=== PATIENT | male | born 1945 | race Hispanic/Latino ===

== ENCOUNTER 2018-05-25 10:17 | Inpatient (IN) | payer MEDICARE ==
[~2018-05-25] VITALS: Ht 172.7 cm; Wt 121.3 kg
[~2018-05-25 10:17] MED LIST: ADVAIR 250-501 EACH INH; AMLODIPINE-BEN1 EAC3 PO; ASPIRIN CHEW81 MG PO; COZAAR50 MG PO; DIOVAN160 MG PO; DOXYCYCLINE HY100 MG PO; FENOFIBRATE160 MG PO; FUROSEMIDE20 MG PO; HYDRALAZINE HCL25 MG PO; HYDRALAZINE HCL50 MG PO; LASIX40 MG PO; METOPROLOL SUCC50 MG PO; METOPROLOL TART50 MG PO; MONTELUKAST SOD10 MG PO; MUCINEX600 MG PO; NORVASC10 MG PO; Nystatin/Triamcinolone TOP; PENCILLIN V PO250 MG PO; POTASSIUM CHLO10 ME1 PO; POTASSIUM CHLO20 ME1 PO; PROAIR HFA INH8.5 GM; SIMVASTATIN20 MG PO; SYMBICORT 16010.2 GM INH; TESSALON PERLE100 MG PO; VANCOMYCIN1 GM/250 M IV; ZITHROMAX500 MG PO; ceftin PO
--- OUTSIDE RECORDS SUMMARY | 2018-05-25 10:20 | XMS REPORT | Clinical Summary ---
Author Author [facility] Address Unknown Phone Unavailable Care Team Providers Care Pets And Pet Supplies Salesperson Name Role Phone Jaquez PCP Unavailable Allergies No Known Allergies Medications End Date Status Medication Sig Dispensed Refills Start Date Active albuterol Inhale 2 0 (PROVENTIL,VENTOLIN) 90 puffs by mcg/actuation mouth via inhalerIndications: Acute inhaler every Asthma Attack 6 (six) hours as needed. Active aspirin 81 MG EC tablet Take 81 mg by 0 mouth daily. Active simvastatin (ZOCOR) 20 MG Take 20 mg by 0 tablet mouth nightly. Active potassium chloride Take 1 tablet 30 tablet 1 (KLOR-CON) 10 MEQ CR (10 mEq 6 tablet total) by mouth daily. Active metoprolol (LOPRESSOR) 50 Take 50 mg by 0 MG tablet mouth 2 (two) times daily. Active budesonide-formoterol Inhale 2 0 (SYMBICORT) 160-4.5 puffs by mcg/actuation inhaler mouth via inhaler 2 (two) times daily. Active hydrALAZINE (APRESOLINE) Take 50 mg by 0 50 MG tablet mouth 2 (two) times daily. Active valsartan (DIOVAN) 320 MG Take 320 mg 0 tablet by mouth daily. Active bumetanide (BUMEX) 2 MG Take 1 tablet 60 tablet 0 tablet (2 mg total) 7 by mouth daily. Active Problems Problem Noted Date COPD exacerbation 04/07/2017 Acute on chronic diastolic congestive heart failure, NYHA class 3 05/12/2015 Neck pain, acute 05/12/2015 Atypical chest pain 05/12/2015 Dyspnea 05/12/2015 Accelerated hypertension with diastolic congestive heart failure, NYHA 05/12/2015 class 3 Moderate persistent asthma in adult without complication 05/12/2015 CAD (coronary artery disease) of artery bypass graft, ACBx4 2003 (ALVAREZ to 01/22/2013 LAD, SVG to D, SVG to OM, SVG to RCA), stress test nuclear normal 05/26. EF normal in stress test with normal wall motion. Arthritis 01/21/2013 Hyperlipidemia 01/21/2013 DELMER on CPAP 01/21/2013 Family History Medical History Relation Name Comments Heart disease Mother Hyperlipidemia Sister Relation Name Status Comments Mother Sister Social History Date Tobacco Use Types Packs/Day Years Used Never Smoker Smokeless Tobacco: Never Used Alcohol Use Drinks/Week oz/Week Comments No Sex Assigned at Date Recorded Not on file Industry Job Start Date Occupation Not on file Not on file Not on file Travel End Travel History Travel Start No recent travel history available. Last Filed Vital Signs Not on file Plan of Treatment Not on file Results Not on fileafter 05/24/2017 Insurance Payer Benefit Subscriber ID Type Phone Address [facility] MEDIC[facility] ADV Guarantor Name Account Relation to Date of Phone Billing Address Type Patient Donny Self Personal/F Self 1945 [phone] [facility] (Home) [place] [address] Advance Directives For more information, please contact: [address] [address] Date Inactivated Comments Code Status Date Activated 04/09/2017 1:48 PM Full Code 04/07/2017 7:59 PM This code status was determined by: Patient 05/18/2013 6:31 PM All possible means of support, including: cardiac massage, mechanical ventilation, and defibrillation will be used to support life. Code ONE 05/11/2013 10:05 AM 01/22/2013 4:59 PM All possible means of support, including: cardiac massage, mechanical ventilation, and defibrillation will be used to support life. Code ONE 01/21/2013 5:32 PM 01/21/2013 5:32 PM All possible means of support, including: cardiac massage, mechanical ventilation, and defibrillation will be used to support life. Code ONE 01/21/2013 1:35 PM
--- OUTSIDE RECORDS SUMMARY | 2018-05-25 10:20 | XMS REPORT ---
Author Author [facility] Address Unknown Phone Unavailable Care Team Providers Care Musical String Maker Name Role Phone CARINA SHIN Unavailable Unavailable SWEETTito LAIDAVID Unavailable Unavailable Problems This patient has no known problems. Allergies, Adverse Reactions, Alerts This patient has no known allergies or adverse reactions. Medications This patient has no known medications. Results Test Description Test Time Test Comments Text Results Atomic Results Result Comments BLOOD CULTURE 2017-04-12 23:00:00 CULTURE (BEAKER) (test qiuz=9057) No growth in 5 days BLOOD [id number] 23:00:00* Test Item Value Reference Range Comments CULTURE (BEAKER) (test splx=1495) No growth in 5 days BASIC METABOLIC [id number] 05:53:00* Test Item Value Reference Range Comments SODIUM (BEAKER) (test oggk=395) 144 meq/L 136-145 POTASSIUM (BEAKER) (test bakk=894) 4.2 meq/L 3.5-5.1 CHLORIDE (BEAKER) (test blta=318) 100 meq/L 98-107 CO2 (BEAKER) (test ipnw=834) 38 meq/L 22-29 BLOOD UREA NITROGEN (BEAKER) (test pzse=963) 39 mg/dL 7-21 CREATININE (BEAKER) (test jxvp=063) 1.01 mg/dL 0.57-1.25 GLUCOSE RANDOM (BEAKER) (test uxwb=409) 99 mg/dL 70-105 CALCIUM (BEAKER) (test kcuu=435) 9.5 mg/dL 8.4-10.2 EGFR (BEAKER) (test vpkt=7488) 73 mL/min/1.73 sq m ESTIMATED GFR IS NOT ACCURATE CREATININE CLEARANCE IN PREDICTING GLOMERULAR FILTRATION RATE. ESTIMATED GFR IS NOT APPLICABLE FOR DIALYSIS PATIENTS. CREATINE KINASE (CK), TOTAL AND [id number] 14:47:00* Test Item Value Reference Range Comments CREATINE KINASE TOTAL (BEAKER) (test sigg=900) 55 U/L 29-200 CREATINE KINASE-MB (BEAKER) (test fshg=344) 2.9 ng/mL 0.0-6.6 CREATINE KINASE-MB INDEX (BEAKER) (test dwig=423) 5.3 % CK-MB Reference Range:<6.7 Normal6.7-10.0 Borderline>10.0 Abnormal TROPONIN [id number] 14:47:00* Test Item Value Reference Range Comments TROPONIN I (BEAKER) (test zqbl=807) 0.06 ng/mL 0.00-0.03 Troponin I (TnI) levels must be interpreted in the context of the presenting sym ptoms and the clinical findings. Elevated TnI levels indicate myocardial damage, but are not specific for ischemic heart disease. Elevated TnI levels are seen in patients with other cardiac conditions (including myocarditis and congestive h eart failure), and slight TnI elevations occur in patients with other conditions , including sepsis, renal failure, acidosis, acute neurological disease, and per sistent tachyarrhythmia.BASIC METABOLIC [id number] 05:52:00* Test Item Value Reference Range Comments SODIUM (BEAKER) (test qvio=451) 143 meq/L 136-145 POTASSIUM (BEAKER) (test anbb=820) 4.6 meq/L 3.5-5.1 CHLORIDE (BEAKER) (test vjsx=161) 100 meq/L 98-107 CO2 (BEAKER) (test sagq=524) 34 meq/L 22-29 BLOOD UREA NITROGEN (BEAKER) (test pvbo=636) 34 mg/dL 7-21 CREATININE (BEAKER) (test slyn=029) 1.00 mg/dL 0.57-1.25 GLUCOSE RANDOM (BEAKER) (test gfpg=817) 114 mg/dL 70-105 CALCIUM (BEAKER) (test qztd=168) 9.5 mg/dL 8.4-10.2 EGFR (BEAKER) (test kzvw=8952) 74 mL/min/1.73 sq m ESTIMATED GFR IS NOT ACCURATE CREATININE CLEARANCE IN PREDICTING GLOMERULAR FILTRATION RATE. ESTIMATED GFR IS NOT APPLICABLE FOR DIALYSIS PATIENTS. TROPONIN [id number] 22:17:00* Test Item Value Reference Range Comments TROPONIN I (BEAKER) (test bmnc=602) 0.09 ng/mL 0.00-0.03 Troponin I (TnI) levels must be interpreted in the context of the presenting sym ptoms and the clinical findings. Elevated TnI levels indicate myocardial damage, but are not specific for ischemic heart disease. Elevated TnI levels are seen in patients with other cardiac conditions (including myocarditis and congestive h eart failure), and slight TnI elevations occur in patients with other conditions , including sepsis, renal failure, acidosis, acute neurological disease, and per sistent tachyarrhythmia.RAD, CHEST, 2 [id number] 16:06:00Reason for exam:-> SHORTNESS OF BREATHReason for exam:->COUGHFINAL REPORT HISTORY : SHORTNESS OF BREATHCOUGH. Comparison: 05/11/2015 Comment: Two views of the chest, PA and lateral, were obtained. The cardiac silhouette size is enlarged. There are findings of pulmonary venous congestion. Interstitial prominence may represent interstitial edema. An interstitial pneumonitis cannot be excluded. No pneumothorax or pleural effusion is seen. There is atherosclerotic calcification of the thoracic aorta. The patient is status post sternotomy. Multilevel degenerative disc changes of the thoracic spine are seen. Signed: Lori Patterson Verified Date/Time: 04/07/2017 16:06:10 Reading Location: [address] Transitional Reading Room D INFLUENZA A&B [id number] 16:04:00* Test Item Value Reference Range Comments RAPID INFLUENZA A AG (BEAKER) (test dvnh=9926) Negative Negative, Inconclusive RAPID INFLUENZA B AG (BEAKER) (test yuin=8375) Negative Negative, Inconclusive RAPID TROPONIN [id number] 16:03:00* Test Item Value Reference Range Comments RAPID TROPONIN I (BEAKER) (test qsda=3565) < ng/mL <0.05 HEPATIC FUNCTION [id number] 15:56:00* Test Item Value Reference Range Comments TOTAL PROTEIN (BEAKER) (test ctuv=475) 7.3 gm/dL 6.0-8.5 ALBUMIN (BEAKER) (test ecql=9906) 3.4 g/dL 3.5-5.0 BILIRUBIN TOTAL (BEAKER) (test ufnz=120) 0.7 mg/dL 0.1-1.2 BILIRUBIN DIRECT (BEAKER) (test veag=074) 0.4 mg/dL 0.0-0.4 ALKALINE PHOSPHATASE (BEAKER) (test llzr=014) 56 U/L 30-115 AST (SGOT) (BEAKER) (test giyd=987) 24 U/L 5-40 ALT (SGPT) (BEAKER) (test yxml=707) 33 U/L 5-50 B-TYPE NATRIURETIC FACTOR (BNP)2017-04-07 15:56:00* Test Item Value Reference Range Comments B-TYPE NATRIURETIC PEPTIDE (BEAKER) (test nixb=127) 215 pg/mL 0-100 BASIC METABOLIC [id number] 15:53:00* Test Item Value Reference Range Comments SODIUM (BEAKER) (test juyt=425) 145 meq/L 135-148 POTASSIUM (BEAKER) (test dbmi=711) 4.9 meq/L 3.6-5.5 CHLORIDE (BEAKER) (test mqxy=334) 100 meq/L 98-106 CO2 (BEAKER) (test tavu=072) 35 meq/L 24-32 BLOOD UREA NITROGEN (BEAKER) (test pbyv=074) 35 mg/dL 10-26 CREATININE (BEAKER) (test vold=317) 1.08 mg/dL 0.50-1.20 GLUCOSE RANDOM (BEAKER) (test dujc=821) 118 mg/dL 70-110 CALCIUM (BEAKER) (test lhly=990) 9.0 mg/dL 8.5-10.5 EGFR (BEAKER) (test sxwp=6410) 67 mL/min/1.73 sq m ESTIMATED GFR IS NOT ACCURATE CREATININE CLEARANCE IN PREDICTING GLOMERULAR FILTRATION RATE. ESTIMATED GFR IS NOT APPLICABLE FOR DIALYSIS PATIENTS. CBC W/PLT COUNT & AUTO [id number] 15:45:00* Test Item Value Reference Range Comments WHITE BLOOD CELL COUNT (BEAKER) (test tyvd=881) 7.2 10e3/ L 4.0-10.0 RED BLOOD CELL COUNT (BEAKER) (test mfwt=241) 4.77 10e6/ L 4.20-5.80 HEMOGLOBIN (BEAKER) (test jkbv=135) 13.5 g/dL 13.0-16.8 HEMATOCRIT (BEAKER) (test ayce=976) 41.1 % 40.0-50.0 MEAN CORPUSCULAR VOLUME (BEAKER) (test ohfc=118) 86.1 fL 82.0-98.0 MEAN CORPUSCULAR HEMOGLOBIN (BEAKER) (test unwz=022) 28.2 pg 27.0-33.0 MEAN CORPUSCULAR HEMOGLOBIN CONC (BEAKER) (test bolz=607) 32.8 g/dL 32.0-36.0 RED CELL DISTRIBUTION WIDTH (BEAKER) (test vywp=081) 13.8 % 10.3-14.2 PLATELET COUNT (BEAKER) (test bvyi=166) 203 10e3/ L 150-430 MEAN PLATELET VOLUME (BEAKER) (test frmk=983) 8.1 fL 6.5-10.5 NEUTROPHILS RELATIVE PERCENT (BEAKER) (test bnlj=135) 74 % LYMPHOCYTES RELATIVE PERCENT (BEAKER) (test qbgo=675) 14 % MONOCYTES RELATIVE PERCENT (BEAKER) (test nhop=371) 9 % EOSINOPHILS RELATIVE PERCENT (BEAKER) (test usdq=476) 2 % BASOPHILS RELATIVE PERCENT (BEAKER) (test wssi=278) 1 % NEUTROPHILS ABSOLUTE COUNT (BEAKER) (test wzzv=508) 5.30 10e3/ L 1.80-8.00 LYMPHOCYTES ABSOLUTE COUNT (BEAKER) (test lnfc=086) 1.03 10e3/ L 1.48-4.50 MONOCYTES ABSOLUTE COUNT (BEAKER) (test vovq=944) 0.65 10e3/ L 0.00-1.30 EOSINOPHILS ABSOLUTE COUNT (BEAKER) (test abip=230) 0.16 10e3/ L 0.00-0.50 BASOPHILS ABSOLUTE COUNT (BEAKER) (test uoxy=945) 0.04 10e3/ L 0.00-0.20 CHEST 2 VIEWS [place] [address] Patient Name: DONNY SELF MR #: [id number] : 1945 Age/Sex: 71/M Req #: [id number] Adm Physician: Ordered by: SADE ADHIKARI MD Report #: [id number] Location: ER Room/Bed: Procedure: [id number] DX/CHEST 2 VIEWS Exam Date: 0 01/10/17 Exam Time: 2200 REPORT STATUS: Signed EXAMINATION: CHEST 2 VIEWS INDICATION: Cough, fever COMPARISON: 06/21/2016, 06/19/2016 and 06/17/2016 FINDINGS: TUBES and LI JOHN: None. LUNGS: Lungs are not well inflated. There are bibasilar atele ctasis. There is mild prominence of the central pulmonary vasculature, consi stent with pulmonary venous congestion. Confluent opacity in the left upper lo be and suprahilar region suspicious for developing infection/pneumonia PL EURA: No pleural effusion or pneumothorax. HEART AND MEDIASTINUM: Cardiac size is moderately enlarged. There are atherosclerotic calcifications within the aorta. Midline sternotomy wires are intact BONES AND SOFT TISSUES: N o acute osseous lesion. Soft tissues are unremarkable. UPPER ABDOMEN: No free air under the diaphragm. IMPRESSION: 1. Findings are suspicio us for left upper lobe/suprahilar airspace disease/pneumonia. 2. Moderate e nlargement of the heart without evidence of decompensation. Signed by: Marielle Conley M.D. on 01/10/2017 10:30 PM Dictated By: STEFF GILL MD [address] scribed By: CHARLY on 01/10/172229 COPY TO: SADE ADHIKARI MD
[2018-05-25 10:56] LABS: BASOPHILS % 0.3 % (0.0-1.0); EOSINOPHILS # (AUTO) 0.5 (0.0-0.4); EOSINOPHILS % 5.4 % (0.0-6.0); HEMATOCRIT 46.3 % (38.2-49.6); HEMOGLOBIN 14.5 g/dL (14.0-18.0); LYMPHOCYTES # (AUTO) 1.8 (1.0-3.2); MEAN CORPUSCULAR HEMOGLOBIN 28.3 pg (28-32); MEAN CORPUSCULAR HGB CONC 31.3 g/dL (31-35); MEAN CORPUSCULAR VOLUME 90.3 fL (81-99); MONOCYTES # (AUTO) 0.8 (0.2-0.8); MONOCYTES % 8.3 % (4.4-11.3); NEUTROPHILS # (AUTO) 6.2 (2.1-6.9); NEUTROPHILS % 66.8 % (38.7-80.0); PLATELET COUNT 203 x10e3/uL (140-360); RED BLOOD COUNT 5.13 x10e6/uL (4.3-5.7); RED CELL DISTRIBUTION WIDTH 14.4 % (11.7-14.4)
[2018-05-25 11:06] LABS: PARTIAL THROMBOPLASTIN TIME 28.6 seconds (23.8-35.5)
[2018-05-25 11:14] LABS: BILIRUBIN,URINE NEGATIVE (NEGATIVE); CLARITY,URINE SL CLOUDY (CLEAR); COLOR,URINE YELLOW (YELLOW); KETONES,URINE NEGATIVE (NEGATIVE); LEUKOCYTE ESTERASE ,URINE TRACE (NEGATIVE); NITRITE,URINE NEGATIVE (NEGATIVE); PROTEIN,URINE DIPSTICK NEGATIVE (NEGATIVE); URINE UROBILINOGEN 0.2 mg/dL (0.2 - 1)
[2018-05-25 11:15] LABS: ALBUMIN 3.9 g/dL (3.5-5.0); ANION GAP 13.9 mmol/L (8-16); CALCIUM 9.9 mg/dL (8.4-10.2); CREATININE, SERUM 1.41 mg/dL (0.72-1.25); POTASSIUM 4.9 mmol/L (3.5-5.1)
--- NOTE | 2018-05-25 11:18 | Diagnostic Imaging Report ---
EXAMINATION: CHEST SINGLE (PORTABLE) INDICATION: Chest pain COMPARISON: Image from comparison radiograph on 01/10/2017 are not available at the time of this dictation. FINDINGS: Somewhat limited from portal technique and soft tissue attenuation. TUBES and LINES: None. LUNGS: There is mild central vascular congestion and mild interstitial opacity. Mild patchy opacity at the right lung base, likely atelectasis. No evidence of lobar consolidation. PLEURA: No pleural effusion or pneumothorax. HEART AND MEDIASTINUM: Enlargement of the cardiomediastinal silhouette. Atherosclerotic calcifications of the aorta. BONES AND SOFT TISSUES: No acute osseous abnormality. Status post median sternotomy. UPPER ABDOMEN: No free air under the diaphragm. IMPRESSION: Cardiomegaly with mild pulmonary interstitial edema. Signed by: Dr. Julio Cesar Anderson MD on 05/25/2018 11:14 AM
[2018-05-25 11:22] LABS: CREATINE KINASE MB 3.8 ng/mL (0-5.0)
[2018-05-25 11:25] LABS: INR 0.95; PROTHROMBIN TIME 13.6 seconds (11.9-14.5)
[2018-05-25 11:29] LABS: BACTERIA,URINE RARE /HPF; EPITHELIAL CELLS,URINE RARE /LPF
[2018-05-25] MEDS ORDERED: NITROGLYCERIN 0.4 MG SUBL SL PRN (12:15)
[2018-05-25] MEDS ORDERED: MORPHINE SULFATE INJ 4 MG/ML INJ 1ML IV PRN (12:15)
[2018-05-25] MEDS ORDERED: SODIUM CHLORIDE FLUSH 10 ML SYR INJ PRN (12:15)
[2018-05-25] MEDS ORDERED: ONDANSETRON HCL INJ 2MG/ML 2ML 2 MG/ML VIAL IV PRN (12:15)
--- OUTSIDE RECORDS SUMMARY | 2018-05-25 12:16 | XMS REPORT | Clinical Summary ---
Author Author [facility] Address Unknown Phone Unavailable Care Team Providers Care Applications Support Lead Name Role Phone Jaquez PCP Unavailable Allergies [...] ID Type Phone Address Plan / [facility] x[facility]xx MEDICARE ADV Guarantor Name Account Relation to Date of Phone Billing Address Type Patient Donny Self Personal/F Self 1945 [phone] [facility] (Home) [place] [address] Advance Directives For more information, please contact: [address] [address] Date Inactivated Comments Code Status [...]
[2018-05-25] MEDS: FAMOTIDINE 20 MG TAB PO SCH (13:00)
--- NOTE | 2018-05-25 14:20 | NUR ---
Recvd patient from ER via stretcher, AAOx3, Not in SOB, On Tele box, denies any pain, not in any distress, call light in reach, at bed side. keep monitoring
[2018-05-25 14:28] VITALS: BP 185/78
--- NOTE | 2018-05-25 15:17 | Consultation ---
DATE OF CONSULTATION: May 25, 2018 CARDIOLOGY CONSULTATION REQUESTING PHYSICIAN: Dr. Ferrera. REASON FOR CONSULTATION: Chest pain. HISTORY OF PRESENT ILLNESS: This is a 73-year-old man with history of coronary artery disease status post 4-vessel CABG in 2002 and stent in 2001, chronic diastolic heart failure, hypertension, hyperlipidemia, COPD and sleep apnea, who presents with complaints of chest pain. The patient reports he has been having chest pain for approximately the last month. Describes it as a squeezing sensation, 1/10 in severity, that lasts a few minutes at a time. The pain occurs every day and does occasionally radiate to the jaw and arm. It is not associated with shortness of breath, nausea, or diaphoresis. He denies any orthopnea or PND. REVIEW OF SYSTEMS: Negative except as per HPI. PAST MEDICAL HISTORY 1. Coronary artery disease status post 4-vessel CABG in 2002 and stent in 2001. 2. Chronic diastolic heart failure. 3. Hypertension. 4. Hyperlipidemia. 5. COPD. 6. Sleep apnea. PAST SURGICAL HISTORY 1. CABG. 2. Back surgery in 1973. ALLERGIES: PLEASE SEE EMR. MEDICATIONS: Please see medication list. SOCIAL HISTORY: Denies tobacco, alcohol or illicit drugs. FAMILY HISTORY: Pertinent for myocardial infarction in the mother and brother. PHYSICAL EXAMINATION VITAL SIGNS: Temperature 98.8 degrees, pulse 60, respiratory rate 18, blood pressure 121/73, oxygen saturation 100% on 3 liters nasal cannula. GENERAL: Awake, alert, in no acute distress. HEENT: Normocephalic, atraumatic. Pupils equal, no scleral icterus. NECK: Supple. No thyromegaly or cervical lymphadenopathy, no carotid bruits. LUNGS: Clear to auscultation bilaterally. No wheezes or crackles. CARDIOVASCULAR: Normal rate, regular rhythm. No murmur. Normal S1 and S2. ABDOMEN: Soft, nontender. EXTREMITIES: 1+ pitting edema on the right, trace on the left. NEURO: Nonfocal exam. LABS: WBC 9.25, hemoglobin 14.5, hematocrit 46.3, platelets 203. Sodium 142, potassium 4.9, chloride 102, CO2 31, BUN 34, creatinine 1.41. BNP 207. CHEST X-RAY: Cardiomegaly with mild pulmonary interstitial edema. EKG: Sinus bradycardia with PACs, left ventricular hypertrophy with repolarization abnormality. IMPRESSIONS 1. Chest pain. 2. Pynvc-ri-gkpkpus diastolic heart failure. 3. Coronary artery disease status post 4-vessel coronary artery bypass graft. 4. Hypertension. 5. Hyperlipidemia. 6. Chronic obstructive pulmonary disease. 7. Obstructive sleep apnea. RECOMMENDATIONS: Trend cardiac enzymes to rule out myocardial infarction. Echocardiogram has been ordered. Given patient's complaint of chest pain and prior cardiac history, ischemic evaluation is warranted with nuclear stress test. If he rules in for myocardial infarction, he will need cardiac catheterization. Continue home cardiac medications. check fasting lipid panel. Thank you for this consult. We will continue to follow. Job#: [id number] JORGE
[2018-05-25 15:32] VITALS: BP 146/80
[2018-05-25 16:27] VITALS: BP 146/80
[2018-05-25] MEDS: NITROGLYCERIN 2% OINT 1 GM PKT TOP SCH (18:00)
[2018-05-25 20:00] VITALS: BP 166/80
[2018-05-25] MEDS ORDERED: FUROSEMIDE INJ 10 MG/ML 4 ML VIAL IV SCH (21:00)
[2018-05-25 21:38] LABS: CREATINE KINASE MB 3.1 ng/mL (0-5.0)
--- NOTE | 2018-05-25 23:00 | NUR ---
RECEIVED REPORT. NO SS OF DISTRESS NOTED. NO CO PAIN AT TIME. TELE IN PLACE. WILL CONT TO FOLLOW POC. CALL BETANCOURT WITHIN REACH.
[2018-05-25] MEDS ORDERED: DOXYCYCLINE 100MG/NS 100ML 100 ML IV SCH (23:30)
[2018-05-25] MEDS ORDERED: CEFTRIAXONE SOD 1 GM/NS 50 ML 50 ML IV SCH (23:30)
[2018-05-26] VITALS: BP 144/67
--- NOTE | 2018-05-26 | NUR ---
pt npo per orders. pt verbalized understanding. call negron within reach.
--- NOTE | 2018-05-26 00:15 | NUR ---
PT CO WHEEZING. 02 97% ON [address] ELDER, NEW ORDERS RECEIVED. SPOKE TO RESPIRATORY REGARDING NEBS [place] ORDER.
--- NOTE | 2018-05-26 00:21 | History and Physical ---
DATE OF ENCOUNTER: May 25, 2018 PRIMARY CARE DOCTOR: Dr. Cuba [facility] COVERAGE: Dr. Haseeb Cornelius CHIEF COMPLAINT: Chest pain. HISTORY: Mr. Self is a pleasant 73-year-old gentleman with chest pain. Patient was having intermittent chest pains. Onset about 1 month. Squeezing sensation. Lasts a few minutes at a time. Patient does not have any significant shortness of breath associated with it. When he did come to the emergency room, it was seen that his creatinine was 1.4, which is minimally above his baseline. BNP level is 208. Albumin is 3.9. At this point, EKG also had nonspecific many T-wave changes. It was elected to admit him for further evaluation. Patient does have history of coronary artery disease known. PAST MEDICAL HISTORY: Coronary artery disease status post CABG in 2002 and stent in 2001. Chronic diastolic heart failure. Hypertension. Hyperlipidemia. Sleep apnea. Back surgery in 1973. MEDICATIONS: Medication list reviewed per electronic record. ALLERGIES: NO KNOWN DRUG ALLERGIES. SOCIAL HISTORY: No smoking, no drinking, no drugs cited. 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 FAMILY HISTORY: Not contributory to this condition. REVIEW OF SYSTEMS: GENERAL: No weight changes. OPHTHALMOLOGIC: No double vision. ENT: No dry mouth. PULMONARY: Does not know about asthma. IMMUNOLOGIC: No definite allergies. CARDIAC: No recent heart attacks. GI: No constipation. : No blood in urine. DERMATOLOGIC: No rash. MUSCULOSKELETAL: Mild arthritis. NEUROLOGIC: No seizures. OBJECTIVE: VITAL SIGNS: Currently afebrile, vital signs noted per electronic record. GENERAL: No acute distress, looks tired, but breathing spontaneously. HEENT: Normocephalic, atraumatic. NECK: Supple. Throat midline. LUNGS: Bilateral air entry, limited, rare rhonchi. CARDIOVASCULAR: S1, S2. No murmurs, rubs, or gallops. ABDOMEN: Soft, nontender. EXTREMITIES: No clubbing, no cyanosis, there is trace edema into the feet. INTEGUMENT: No rash, no purpura. LABS: 9 white count, 46 hematocrit, 203,000 platelets. 4.9 potassium, 34 BUN, 1.4 creatinine. CK 154, troponin 0.04. BNP 208 as stated. Albumin 3.9, globulin is 4.0. X-ray, chest x-ray with cardiomegaly and mild pulmonary interstitial edema. IMPRESSION AND PLAN: 1. Atypical chest pain, possible acute coronary syndrome. 2. Abnormal chest radiography, increased interstitial edema, possible fluid overload. 3. Possible pneumonia. 4. Known coronary artery disease and coronary artery bypass graft with stent. 5. Obstructive sleep apnea. 6. Chronic diastolic heart failure. 7. Hypertension. 8. Hyperlipidemia. Trial of diuresis. Cardiology consult. Ensure x-ray gets better. Follow up electrolytes. Treat for possible pneumonia given the low B-type natriuretic peptide level. Patient will have serial evaluation. Resume most home medicines. Thank you very much, Dr. Cuba in [facility] for allowing Dr. Cornelius and I the chance to participate in the care of Mr. Self. Please call for questions. Job#: [id number]
[2018-05-26] MEDS: FAMOTIDINE 20 MG TAB PO SCH (00:25)
[2018-05-26] MEDS: ALBUTEROL SULF 0.083% NEB SOLN 3 ML NEB NEB PRN ×2 (00:42→10:11)
[2018-05-26] MEDS: NITROGLYCERIN 2% OINT 1 GM PKT TOP SCH ×2 (01:00→06:35)
[2018-05-26 04:00] VITALS: BP 143/66
--- NOTE | 2018-05-26 04:19 | NUR ---
assisted pt to bathroom and back to bed via rolling walker. no distress noted. call negron within reach.
[2018-05-26 05:34] LABS: BASOPHILS % 0.4 % (0.0-1.0); EOSINOPHILS # (AUTO) 0.5 (0.0-0.4); EOSINOPHILS % 6.8 % (0.0-6.0); HEMATOCRIT 39.7 % (38.2-49.6); HEMOGLOBIN 12.3 g/dL (14.0-18.0); LYMPHOCYTES # (AUTO) 1.8 (1.0-3.2); LYMPHOCYTES % 23.6 % (18.0-39.1); MEAN CORPUSCULAR HEMOGLOBIN 28.2 pg (28-32); MEAN CORPUSCULAR VOLUME 91.1 fL (81-99); MONOCYTES # (AUTO) 0.8 (0.2-0.8); NEUTROPHILS # (AUTO) 4.6 (2.1-6.9); NEUTROPHILS % 58.9 % (38.7-80.0); PLATELET COUNT 177 x10e3/uL (140-360); RED BLOOD COUNT 4.36 x10e6/uL (4.3-5.7); RED CELL DISTRIBUTION WIDTH 14.2 % (11.7-14.4)
[2018-05-26 05:54] LABS: ANION GAP 12.9 mmol/L (8-16); CALCIUM 9.1 mg/dL (8.4-10.2); CHOL/HDL RATIO 2.5 (3.9-4.7); CREATININE, SERUM 1.53 mg/dL (0.72-1.25); POTASSIUM 3.9 mmol/L (3.5-5.1)
--- NOTE | 2018-05-26 06:37 | Diagnostic Imaging Report ---
EXAMINATION: CHEST SINGLE (PORTABLE) INDICATION: Pneumonia. COMPARISON: 05/25/2018 FINDINGS: TUBES and LINES: None. LUNGS: There is mild central vascular congestion and mild interstitial opacity. Mild patchy opacity at the right lung base, likely atelectasis. No evidence of lobar consolidation. PLEURA: No pleural effusion or pneumothorax. HEART AND MEDIASTINUM: Enlargement of the cardiomediastinal silhouette. Atherosclerotic calcifications of the aorta. BONES AND SOFT TISSUES: No acute osseous abnormality. Status post median sternotomy. UPPER ABDOMEN: No free air under the diaphragm. IMPRESSION: Stable cardiomegaly and mild pulmonary interstitial edema. Signed by: DR. Nathan Stoner MD on 05/26/2018 6:33 AM
--- NOTE | 2018-05-26 07:28 | NUR ---
patient resting in bed, on O2 3L NC, Denies any SOB, No distress noted, call light in reach
[2018-05-26 08:14] VITALS: BP 129/61
[2018-05-26] MEDS: ASPIRIN 81 MG ENTERIC COATED PO SCH (08:32)
[2018-05-26] MEDS: METOPROLOL TARTRATE 50 MG TAB PO SCH ×2 (08:32→16:17)
[2018-05-26] MEDS: ASPIRIN 81 MG CHEW TAB PO SCH (08:32)
[2018-05-26] MEDS: HYDRALAZINE HCL 25 MG TAB PO SCH ×3 (09:00→21:07)
[2018-05-26] MEDS ORDERED: FUROSEMIDE 40 MG TAB PO SCH (09:00)
[2018-05-26] MEDS ORDERED: VALSARTAN 160 MG TAB PO SCH (09:00)
[2018-05-26 09:14] VITALS: BP 129/61
--- NOTE | 2018-05-26 09:26 | NUR ---
SOCIAL WORK INITIAL ASSESSMENT Dental Office Receptionist to bedside to discuss plan of care with patient/family. CM/SW role and care transitions discussed. Anticipated discharge plan discussed along with duration of care. CM/SW discussed patients right to make decisions in care. CM/SW work hours given. Patient lives: IN HOUSE WITH FAMILY Admit/Transfer: VIA ED FROM HOME POA/Emergency contact: ASHLEY [phone] Current/Previous Home Health: [facility] PCP/Follow-up Care: ALEXX NOLASCO Current/Previous DME: [facility] Other Services: NONE Employment Status: RETIRED Areas of Concerns: NONE Referral Needs: NONE Education Needs: NONE IMM/DA SILVA given and signed (if applicable): UPON ADMISSION Goal for discharge: RETURN HOME CM/SW left business card at the bedside with contact information. Name and number was also written on the patients whiteboard. Patient verbalized understanding of discussion. CM will follow-up with ongoing discharge and transition of care needs.
[2018-05-26] MEDS ORDERED: REGADENOSON 0.4 MG/5 ML SYR IV ONE (09:32)
--- NOTE | 2018-05-26 10:12 | NUR ---
Patient off the unit for stress Test, stable, at bed side
[2018-05-26] MEDS ORDERED: SODIUM CHLORIDE 0.45% 1,000 ML IV ONE (13:45)
--- NOTE | 2018-05-26 15:29 | Diagnostic Imaging Report ---
EXAM: Renal Ultrasound INDICATION: Renal insufficiency. COMPARISON: None TECHNIQUE: Transverse and longitudinal images of the kidneys and bladder were obtained. FINDINGS: Right Kidney: Length: 11.0 cm Appearance: Normal echogenicity. Collecting system: No hydronephrosis Stones: None Cyst/Mass: None Left Kidney: Length: 11.8 cm Appearance: Normal echogenicity. Collecting system: No hydronephrosis Stones: None Cyst/Mass: None Bladder: Suboptimally distended. IMPRESSION: Unremarkable renal ultrasound exam. Signed by: Dr. Daniel Nayak M.D. on 05/26/2018 3:26 PM
[2018-05-26 16:34] VITALS: BP 174/74
[2018-05-26 20:00] VITALS: BP 174/71
--- NOTE | 2018-05-26 20:45 | NUR ---
PATIENT CONDITION STABLE WITHOUT DISTRESS, HE DENIES SHORTNESS OF BREATH. FAMILY MEMBERS VISITING WITH THE PATIENT, HE'S INSTRUCTED TO CALL FOR ASSISTANCE NEEDED.
[2018-05-26] MEDS: SIMVASTATIN 20 MG TAB PO SCH (21:07)
[2018-05-27] VITALS (9 sets, daily range): BP systolic 128–168; BP diastolic 62–70
[2018-05-27] MEDS: ALBUTEROL SULF 0.083% NEB SOLN 3 ML NEB NEB PRN ×3 (00:15→19:45)
--- NOTE | 2018-05-27 00:22 | NUR ---
RESPIRATORY THERAPIST NOTIFY TO ADMINISTER BREATHING TREATMENT FOR THE PATIENT DUE TO WHEEZING. THE TREATMENT IS NOW IN PROGRESS, WILL CONTINUE TO MONITOR.
--- NOTE | 2018-05-27 05:46 | NUR ---
PATIENT IS TO BE TRANSFER TO # 112, REPORT WAS CALLED AND GIVEN TO THE RECEIVING NURSE. THE PATIENT IS TAKING A SHOWER WITH [facility] AT THIS TIME.
[2018-05-27 05:49] LABS: BASOPHILS % 0.4 % (0.0-1.0); EOSINOPHILS # (AUTO) 0.5 (0.0-0.4); HEMATOCRIT 40.1 % (38.2-49.6); HEMOGLOBIN 12.1 g/dL (14.0-18.0); LYMPHOCYTES # (AUTO) 1.6 (1.0-3.2); LYMPHOCYTES % 21.3 % (18.0-39.1); MEAN CORPUSCULAR HEMOGLOBIN 28.1 pg (28-32); MEAN CORPUSCULAR HGB CONC 30.2 g/dL (31-35); MONOCYTES # (AUTO) 0.8 (0.2-0.8); MONOCYTES % 10.8 % (4.4-11.3); NEUTROPHILS # (AUTO) 4.5 (2.1-6.9); NEUTROPHILS % 60.1 % (38.7-80.0); PLATELET COUNT 175 x10e3/uL (140-360); RED BLOOD COUNT 4.31 x10e6/uL (4.3-5.7); RED CELL DISTRIBUTION WIDTH 14.1 % (11.7-14.4)
--- NOTE | 2018-05-27 06:00 | NUR ---
RECEIVED THE PT TO THE UNIT FROM ROOM #177.AAOX3.ASSESSMENT DONE.NO PAIN VOICED.TELE @[address]IV #20 TO RAC.ORIENTED THE PT TO THE UNIT.BED LOCKED AND IN LOWEST POSITION.PHONE AND CALL LIGHT WITHIN REACH.INSTRUCTED TO CALL FOR ASSISTANCE NEEDED.STABLE CONDITION.
[2018-05-27 06:03] LABS: ANION GAP 11.4 mmol/L (8-16); CREATININE, SERUM 1.26 mg/dL (0.72-1.25); POTASSIUM 4.4 mmol/L (3.5-5.1)
--- NOTE | 2018-05-27 06:30 | NUR ---
Visit made by the Spiritual Care Department Pastoral Visitor, Elsie Ibarra. Pt unavailable at this time. JANET Lobo Spiritual Care Department O: [phone] Pager: [phone] ([phone] number calling from)
--- NOTE | 2018-05-27 06:50 | NUR ---
REPORT GIVEN TO THE ONCOMING RN.WALKING ROUNDS DONE.STABLE CONDITION.
--- NOTE | 2018-05-27 07:25 | NUR ---
Received patient, patient awake in bed at this time, no signs of distress. Bed in lowest position, side rails up x2, wheels locked, call light in reach. Will continue to monitor.
[2018-05-27] MEDS: ASPIRIN 81 MG CHEW TAB PO SCH (08:21)
[2018-05-27] MEDS: ASPIRIN 81 MG ENTERIC COATED PO SCH (08:21)
[2018-05-27] MEDS: HYDRALAZINE HCL 25 MG TAB PO SCH ×3 (08:44→20:39)
[2018-05-27] MEDS: METOPROLOL TARTRATE 50 MG TAB PO SCH ×2 (08:44→16:25)
--- NOTE | 2018-05-27 08:51 | NUR ---
ORDERS FOR INPT 05/26 AT 13:30 IMM EXPLAINED, SIGNED BY PT AND PLACED ON CHART COPY TO PT IN CARE TRANSITIONS FOLDER
--- NOTE | 2018-05-27 10:15 | NUR ---
Patient A/O X3, even respirations on 3LNC. Last BM yesterday, bowel sounds active. Patient NPO at this time for cardiac catheterization later this afternoon. Patient is up with assist, ambulates with walker. Right AC 20 gauge SL. No complaint of chest pain at this time. Family at bedside, call light in reach, will continue to monitor.
--- NOTE | 2018-05-27 15:30 | NUR ---
Spoke with Dr. Smith regarding heart catheterization now scheduled for tomorrow.
--- NOTE | 2018-05-27 16:54 | Consultation ---
DATE OF CONSULTATION: May 27, 2018 HISTORY OF PRESENT ILLNESS: This is a 73-year-old gentleman with underlying history of chronic kidney disease probable stage 3, underlying hyperlipidemia and hypertension, history of congestive heart failure and coronary artery disease. He presented with chest pain. He also has underlying history of COPD and recent pneumonia. Renal is consulted for management of underlying kidney failure. Currently sitting up in no apparent distress. Family members by bedside. He saw a member of [facility] over a year ago. Has not gone back for followup. Workup here showed unremarkable kidney. He does have a kidney mass and has been getting periodic CT scans to follow that. The ultrasound did not show any mass. The patient, otherwise, is resting comfortably. Labs show hemoglobin 14.5 with a potassium of 4.4, bicarbonate 30 and creatinine 8.26. ALLERGIES: NO APPARENT DRUG ALLERGIES. SOCIAL HISTORY: He does not smoke or drink. CURRENT MEDICATIONS 1. Ondansetron p.r.n. 2. Nitroglycerin p.r.n. 3. Metoprolol 50 mg p.o. b.i.d. 4. Hydralazine 50 mg p.o. t.i.d. 5. Aspirin 81 mg daily. 6. Albuterol and Atrovent nebulizer. 7. IV fluids, normal saline for 1 liter only. FAMILY HISTORY: Significant for hypertension. PHYSICAL EXAMINATION GENERAL: Awake, alert, lying supine, no apparent distress. VITALS: Blood pressure 140/65. Pulse is 77. Afebrile. HEAD AND NECK: Corneas are clear. Oral mucosa moist. LUNGS: Occasional rales, right lower zone more than left. HEART: S1 and S2 audible. Soft 2/6 to 3/6 ejection systolic murmur at left sternal border. ABDOMEN: Otherwise soft and nontender. LOWER EXTREMITIES: Trace ankle edema. IMPRESSION AND PLAN 1. Chronic kidney disease, stage 3. 2. Underlying hypertensive kidney disease. 3. Nephrosclerosis. 4. History of renal mass. 5. History of congestive heart failure. 6. Atherosclerotic cardiovascular disease. Admitted with chest pain. Cardiology was consulted. Please see orders. Job#: [id number]
--- NOTE | 2018-05-27 16:57 | Progress Note ---
DATE: May 27, 2018 CARDIOLOGY PROGRESS NOTE SUBJECTIVE: The patient denies chest pain or shortness of breath. OBJECTIVE VITALS: Temperature 96.7 degrees, pulse 59, respiratory rate 18, blood pressure 140/65, oxygen saturation 99%. GENERAL: Awake, alert and in no acute distress. LUNGS: Clear to auscultation bilaterally. No wheezes or crackles. CARDIOVASCULAR: Normal rate. Regular rhythm. No murmur. Normal S1 and S2. ABDOMEN: Soft and nontender. EXTREMITIES: One plus pitting edema on the right and trace on the left. CARDIAC MEDICATIONS 1. Metoprolol tartrate 50 mg p.o. b.i.d. 2. Simvastatin 20 mg p.o. at bedtime. 3. Aspirin 81 mg p.o. daily. LABS: WBC 7.56, hemoglobin 12.1, hematocrit 40.1, and platelets 175,000. Sodium 139, potassium 4.4, chloride 102, CO2 30, BUN 34, creatinine 1.26. Telemetry is normal sinus rhythm. IMPRESSION 1. Chest pain. 2. Wnecr-tl-htomfks diastolic heart failure. 3. Coronary artery disease: Status post 4-vessel coronary artery bypass graft. 4. Hypertension. 5. Hyperlipidemia. 6. Chronic obstructive pulmonary disease. 7. Obstructive sleep apnea. RECOMMENDATIONS: The patient's cardiac catheterization was rescheduled to tomorrow morning. Continue current cardiac medications. N.p.o. after midnight. Monitor the patient on telemetry. Thank you for this consult. We will continue to follow. Job#: [id number]
--- NOTE | 2018-05-27 17:19 | NUR ---
Paged Dr. He regarding CT order.
--- NOTE | 2018-05-27 17:31 | NUR ---
Called respiratory for humidifier.
--- NOTE | 2018-05-27 18:11 | NUR ---
Patient left for CT at this time via wheelchair, no sings of distress.
--- NOTE | 2018-05-27 18:21 | NUR ---
Patient back from CT at this time, no signs of distress.
--- NOTE | 2018-05-27 19:00 | NUR ---
REPORT TAKEN FROM AM RN.WALKING ROUNDS DONE.LYEING IN THE BED.STABLE CONDITION.
[2018-05-27] MEDS: SIMVASTATIN 20 MG TAB PO SCH (20:39)
--- NOTE | 2018-05-27 22:10 | Diagnostic Imaging Report ---
EXAM: CT Abdomen and Pelvis WITHOUT contrast INDICATION: RENAL MASS COMPARISON: Renal ultrasound 03/25/2019 TECHNIQUE: Abdomen and pelvis were scanned utilizing a multidetector helical scanner from the lung base to the pubic symphysis without administration of IV contrast. Absence of intravenous contrast decreases sensitivity for detection of focal lesions and vascular pathology. Coronal and sagittal reformations were obtained. Routine protocol was performed. IV CONTRAST: None ORAL CONTRAST: Water COMPLICATIONS: None RADIATION DOSE: Total DLP: 851.34 mGy*cm Estimated effective dose: (DLP x 0.015 x size factor) mSv Dose modulation, iterative reconstruction, and/or weight based adjustment of the mA/kV was utilized to reduce the radiation dose to as low as reasonably achievable. FINDINGS: LINES and TUBES: None. LOWER THORAX: Scattered 2 to 5 mm nodules, for example a 2 mm nodule in the left lower lobe (series 2 image 2) and cluster of nodules in the right middle lobe (series 2 image 4). Coronary artery calcifications. HEPATOBILIARY: No focal hepatic lesions. No biliary ductal dilation. GALLBLADDER: No radio-opaque stones or sludge. No wall thickening. SPLEEN: No splenomegaly. PANCREAS: No focal masses or ductal dilatation. ADRENALS: No adrenal nodules KIDNEYS/URETERS: No hydronephrosis. Exophytic 1.6 cm lesion in the superior left renal pole measuring 49 Hounsfield units (series 2 image 32). No stones. GI TRACT: No abnormal distention, wall thickening, or evidence of bowel obstruction. Appendix is normal. PELVIC ORGANS/BLADDER: Unremarkable. LYMPH NODES: No lymphadenopathy. VESSELS: There is mild atherosclerotic disease in the aorta and major arterial branches. PERITONEUM / RETROPERITONEUM: No free air or fluid. BONES: There are degenerative changes in the lumbar spine. SOFT TISSUES: Unremarkable. IMPRESSION: Indeterminate left renal 1.6 cm lesion for which renal cell carcinoma should be excluded. Scattered few small pulmonary nodules, mostly clustered in the right middle lobe. Consider atypical infection and recommend follow-up CT without contrast. Signed by: DR. Nathan Stoner MD on 05/27/2018 10:07 PM
[2018-05-28] VITALS (19 sets, daily range): BP systolic 118–181; BP diastolic 55–94
--- NOTE | 2018-05-28 00:41 | NUR ---
MAINTAINING NPO FOR PROCEDURE.NO PAIN VOICED.NO RESP.DISTRESS .BED LOCKED AND IN LOWEST POSITION.PHONE AND CALL LIGHT WITHIN REACH.INSTRUCTED TO CALL FOR ASSISTANCE NEEDED.
--- NOTE | 2018-05-28 05:00 | NUR ---
HIBICLENSE BATH GIVEN.NO CHEST PAIN VOICED.STABLE CONDITION.
[2018-05-28 06:08] LABS: ALANINE AMINOTRANSFERASE 16 IU/L (0-55); ALBUMIN 3.4 g/dL (3.5-5.0); ALBUMIN/GLOBULIN RATIO 1.1 (0.8-2.0); ALKALINE PHOSPHATASE 53 IU/L (40-150); ANION GAP 12.7 mmol/L (8-16); BLOOD UREA NITROGEN 37 mg/dL (7-26); BUN/CREATININE RATIO 31 (6-25); CALCIUM 9.3 mg/dL (8.4-10.2); CARBON DIOXIDE 29 mmol/L (22-29); CHLORIDE 103 mmol/L (98-107); CREATININE, SERUM 1.18 mg/dL (0.72-1.25); EST GLOMERULAR FILTRATION RATE > 60 ML/MIN (60-); GLUCOSE 95 mg/dL (74-118); POTASSIUM 4.7 mmol/L (3.5-5.1); SODIUM 140 mmol/L (136-145)
--- NOTE | 2018-05-28 06:50 | NUR ---
REPORT GIVEN TO THE ONCOMING RN.WALKING ROUNDS DONE.STABLE CONDITION.
[2018-05-28] MEDS: ALBUTEROL SULF 0.083% NEB SOLN 3 ML NEB NEB PRN ×2 (07:00→20:03)
--- NOTE | 2018-05-28 07:16 | NUR ---
Received patient. Patient resting in bed at this time, no signs of distress. Bed in lowest position, wheels locked, side rails up x2, call light in reach.
[2018-05-28] MEDS: ASPIRIN 81 MG CHEW TAB PO SCH (08:31)
[2018-05-28] MEDS: HYDRALAZINE HCL 25 MG TAB PO SCH ×3 (08:38→21:20)
[2018-05-28] MEDS: METOPROLOL TARTRATE 50 MG TAB PO SCH ×2 (08:38→18:12)
--- NOTE | 2018-05-28 09:30 | NUR ---
Patient A/O X3, even respirations on 2LNC. Tele #8 running SR. No complaint of chest pain or discomfort at this time. Patient is up with assist, voids in toilet. NPO at this time, left heart catheterization scheduled for today. Bowel sounds active, skin intact, no edema. Call light in reach, will continue to monitor.
--- NOTE | 2018-05-28 13:19 | NUR ---
Patient left to sawyer cork slabs at this time, no signs of distress.
[2018-05-28] MEDS ORDERED: VERAPAMIL HCL 2.5 MG/ML 2 ML VIAL ONE (13:30)
[2018-05-28] MEDS ORDERED: MIDAZOLAM HCL 2 MG/2 ML VIAL ONE ×2 (14:17→14:44)
[2018-05-28] MEDS ORDERED: FENTANYL CITRATE/PF 100MCG/2 ML INJ ONE ×2 (14:34→14:45)
[2018-05-28] MEDS ORDERED: IOPAMIDOL 370 MG/ML 200 ML INFUS..BTL INJ ONE (14:45)
[2018-05-28] MEDS ORDERED: LIDOCAINE HCL 2% LOCAL 20 ML VIAL ONE (14:45)
[2018-05-28] MEDS ORDERED: HEPARIN SOD/SOD CHLORIDE 2,000 ML ONE (14:45)
[2018-05-28] MEDS ORDERED: SODIUM CHLORIDE 0.9% 1000ML 1,000 ML ONE (14:45)
--- NOTE | 2018-05-28 14:50 | NUR ---
Received report from Jessica Aragon RN. Reviewed medications given, orders, and procedural events. TR band to right wrist without signs or symptoms of active bleeding at this time. Palpable right radial pulse. Pulseox placed on right thumb. Patient drowsy but arousable to verbal stimuli. Patient's respirations even and unlabored on 2 liters nasal cannula. IV to right antecubital without signs or symptoms of active bleeding at this time. Bed in low and locked position with side rails elevatedx3. Po fluids offered and toileting offered. No distress noted at this time.
--- NOTE | 2018-05-28 15:12 | NUR ---
Removed 2ml of air from right wrist TR band. No signs or symptoms of active bleeding at this time. Palpable right radial pulse. Patient tolerated well. No distress noted at this time.
--- NOTE | 2018-05-28 15:15 | NUR ---
Family at bedside.
--- NOTE | 2018-05-28 15:28 | NUR ---
Removed 3ml of air from right wrist TR band with no signs or symptoms of active bleeding at this time. Palpable right radial pulse. Patient tolerated well. No distress noted.
--- NOTE | 2018-05-28 15:30 | NUR ---
Dr. Jose Toledo at bedside to discuss results of procedure with patient and family at bedside.
--- NOTE | 2018-05-28 15:43 | NUR ---
Bleeding occurred when attempted to remove 3ml of air from right wrist TR band. Air placed back into right wrist TR band. Bleeding stopped at this time. Palpable right radial pulse. Patient drowsy but arousable to verbal stimuli. Respirations even and unlabored on 2liters nasal cannula. Patient appears to be in no signs of acute distress at this time.
--- NOTE | 2018-05-28 16:13 | NUR ---
Removed 2ml of air from right wrist TR band with no signs or symptoms of active bleeding at this time. Palpable right radial pulse. Patient tolerated well. No distress noted at this time.
--- NOTE | 2018-05-28 16:28 | NUR ---
Right TR band w/o oozing -3cc site with positive thrill and sats stable 100%
--- NOTE | 2018-05-28 16:50 | NUR ---
Removed additional -2cc (TR band titration completed)TR band Site w/o bruising or bleeding .Positive radial pulse 2x2 sterile with Tegaderm and Coban applied and wrist brace.Denies discomfort. Handoff back to Sary MILLS Vs stable Monitor Sinus saeed w/o ectopics. Iv site w/o infiltration. Ready for transfer back to floor care.
--- NOTE | 2018-05-28 17:10 | NUR ---
Patient assisted to stand at side of bed to void to use urinal. Patient void 400ml of urine. Patient assisted back to bed. Patient tolerated well. No distress noted at this time.
--- NOTE | 2018-05-28 17:20 | NUR ---
Report given to Nurse Isela Valerio. Reviewed medications given, orders, and procedural events. Reviewed TR band removed at 1650. Dressing to right wrist is clean,dry, and intact with arm board in place. Reviewed last set of vital signs. Nurse Isela Segura verbalized understanding and had no further questions at this time.
--- NOTE | 2018-05-28 17:30 | NUR ---
Patient transferred back to room 112. No distress noted at time of transfer. Patient tolerated well. Bedside handoff with Nurse Isela Valerio. Dressing to right wrist is clean,dry, and intact. Right arm board in place. Addendum: 05/28/18 at 1754 by Sary Xavier RN IV to right antecubital without signs or symptoms of infiltration. Patient on 2 liters nasal cannula.
--- NOTE | 2018-05-28 17:40 | NUR ---
Family notified patient returned to room 112.
--- NOTE | 2018-05-28 18:00 | NUR ---
Patient back from L heart catheterization. Vital signs stable, no signs of distress. Patient on 2LNC, ADA diet. Tolerated dinner well. Right wrist dressing dry and intact. Call light in reach, family at bedside will continue to monitor.
--- NOTE | 2018-05-28 19:13 | Progress Note ---
DATE: May 28, 2018 CARDIOVASCULAR PROGRESS NOTE: SUBJECTIVE: No major events overnight. Had a cardiac catheterization today. OBJECTIVE: VITAL SIGNS: Temperature 97.2, pulse 61, respiratory rate 20, blood pressure 164/69, satting 99% on room air. GENERAL: Obese man, well developed, well nourished, in no acute distress. CARDIOVASCULAR: Regular rate and rhythm. No murmurs, rubs or gallops. LUNGS: Clear to auscultation bilaterally. ABDOMEN: Obese, soft, nontender, nondistended. NEURO AND PSYCH: Alert and oriented to person, place and time. Normal affect. CARDIOVASCULAR MEDICATIONS: Reviewed. LABORATORY DATA: Reviewed. ASSESSMENT: 1. Chest pain. 2. Gieow-yf-ewztqtr systolic heart failure. 3. Coronary artery disease, status post coronary artery bypass graft in the past. 4. Hypertension. 5. Hyperlipidemia. 6. Chronic obstructive pulmonary disease. 7. Obstructive sleep apnea. PLAN: Heart cath done today shows open grafts, severe [place] CAD. Continue medical therapy. No obvious targets for PCI. Severe diffuse disease of RPDA likely causing the abnormal stress test. Thank you for this consult. Will continue to follow. Job#: [id number] EV
--- NOTE | 2018-05-28 19:20 | NUR ---
Report taken from am rn.walking rounds done.stable condition.
[2018-05-28] MEDS: SIMVASTATIN 20 MG TAB PO SCH (21:30)
--- NOTE | 2018-05-28 22:00 | NUR ---
Assessment done.aaox3.no resp.distress.dressing @ r.wrist dry and intact supported with arm splint. bed locked and in lowest position.phone and call light within reach.instructed to call for assistance as needed.keep monitor the pt.
[2018-05-29] MEDS: ALBUTEROL SULF 0.083% NEB SOLN 3 ML NEB NEB PRN ×2 (00:14→13:06)
[2018-05-29 00:15] VITALS: BP 125/57
[2018-05-29 06:01] VITALS: BP 126/65
[2018-05-29 06:23] LABS: ALANINE AMINOTRANSFERASE 15 IU/L (0-55); ALBUMIN 3.3 g/dL (3.5-5.0); ALBUMIN/GLOBULIN RATIO 1.1 (0.8-2.0); ALKALINE PHOSPHATASE 54 IU/L (40-150); ANION GAP 13.9 mmol/L (8-16); BLOOD UREA NITROGEN 29 mg/dL (7-26); BUN/CREATININE RATIO 27 (6-25); CALCIUM 9.3 mg/dL (8.4-10.2); CARBON DIOXIDE 28 mmol/L (22-29); CHLORIDE 106 mmol/L (98-107); CREATININE, SERUM 1.07 mg/dL (0.72-1.25); EST GLOMERULAR FILTRATION RATE > 60 ML/MIN (60-); GLUCOSE 100 mg/dL (74-118); POTASSIUM 4.9 mmol/L (3.5-5.1); SODIUM 143 mmol/L (136-145)
--- NOTE | 2018-05-29 06:50 | NUR ---
REPORT GIVEN TO THE ONCOMING RN.WALKING ROUNDS DONE.STABLE CONDITION.
--- NOTE | 2018-05-29 07:00 | NUR ---
BEDSIDE ROUNDS COMPLETE NO DISTRESS NOTED, UPDATED ON POC VOICED UNDERSTANDING, DENIES PAIN AT THIS TIME, CALL LIGHT IN REACH WILL CONTINUE TO MONITOR
[2018-05-29 08:36] VITALS: BP 157/72
[2018-05-29] MEDS: HYDRALAZINE HCL 25 MG TAB PO SCH (10:12)
[2018-05-29] MEDS: ASPIRIN 81 MG CHEW TAB PO SCH (10:12)
[2018-05-29] MEDS: METOPROLOL TARTRATE 50 MG TAB PO SCH (10:12)
--- NOTE | 2018-05-29 10:30 | NUR ---
IMM EXPLAINED, SIGNED BY PT AND PLACED ON CHART COPY IN TRANSITION OF CARE FOLDER
--- NOTE | 2018-05-29 11:41 | Discharge Summary ---
PRIMARY CARE DOCTOR: Alla Duran MD, with [facility]. FINAL DIAGNOSIS: Coronary artery disease. SECONDARY DIAGNOSES 1. Likely mild acute kidney injury on top of stage-2 chronic kidney disease. 2. Chronic respiratory failure, stable. 3. Morbid obesity. CONSULTANTS 1. Dr. He, nephrology. 2. Dr. Jose Toledo, cardiology. PROCEDURES/STUDIES PERFORMED 1. Stress test, which was abnormal. 2. Left heart cath was unremarkable. HISTORY: Per [facility] HOSPITAL COURSE: The patient did not have an acute myocardial infarction. His troponins were negative. However, his stress test was abnormal. Therefore, a heart cath was done, which was unremarkable. The patient does have a known left renal mass. Here, CT showed 1.6 cm. I have discussed with his primary care doctor. Last year, the patient saw Pinky Sin urologist. At that time, the ultrasound showed a 1.2-cm mass. The patient understands that he needs to continue to follow up with Dr. Amezquita. The patient was seen and examined today. CONDITION ON DISCHARGE: Stable. DISCHARGE MEDICATIONS: Please see medication reconciliation form. RAJEEV GUDINO M.D. Job#: [id number] cc:ALLA DURAN MD
[2018-05-29 11:55] VITALS: BP 143/89
[2018-05-29 12:42] VITALS: BP 143/89
== END 2018-05-29 14:05 | disposition home or self-care (01) | DRG 286 ==
LOC: ER 10:17 → ERHOLD 12:02 → IMCU 13:51 → OBSVTOIN 05-26 13:30 → MED/SURG 05-27 06:13
PROVIDERS: ADMIT Internal Medicine; ATTEND Internal Medicine
PROC: 4A023N7 Measurement of Cardiac Sampling and Pressure, Left Heart, Percutaneous Approach (ICD-10-PCS; principal; 2018-05-26)
PROC: B2121ZZ Fluoroscopy of Single Coronary Artery Bypass Graft using Low Osmolar Contrast (ICD-10-PCS; 2018-05-26)
PROC: B2181ZZ Fluoroscopy of Left Internal Mammary Bypass Graft using Low Osmolar Contrast (ICD-10-PCS; 2018-05-26)
PROC: B2111ZZ Fluoroscopy of Multiple Coronary Arteries using Low Osmolar Contrast (ICD-10-PCS; 2018-05-26)
DX: I13.0 Hypertensive heart and chronic kidney disease with heart failure and stage 1 through stage 4 chronic kidney disease, or unspecified chronic kidney disease (principal); I50.33 Acute on chronic diastolic (congestive) heart failure; I50.32 Chronic diastolic (congestive) heart failure; J96.10 Chronic respiratory failure, unspecified whether with hypoxia or hypercapnia; N17.9 Acute kidney failure, unspecified; Z68.41 Body mass index [BMI] 40.0-44.9, adult; I25.110 Atherosclerotic heart disease of native coronary artery with unstable angina pectoris; Z95.1 Presence of aortocoronary bypass graft; I11.0 Hypertensive heart disease with heart failure; G47.33 Obstructive sleep apnea (adult) (pediatric); E78.5 Hyperlipidemia, unspecified; N28.89 Other specified disorders of kidney and ureter; N18.3 Chronic kidney disease, stage 3 (moderate); N20.0 Calculus of kidney; J44.9 Chronic obstructive pulmonary disease, unspecified; Z95.5 Presence of coronary angioplasty implant and graft; E66.01 Morbid (severe) obesity due to excess calories
CPT/HCPCS: 36415; 71045; 74176; 76770; 78452; 80048; 80053; 80061; 81001; 82550; 82553; 83735; 83880; 84484; 85025; 85610; 85730; 93005; 93017; 93306; 93459; 94640; 96367; 99284; A9502; G0378; J0696; J1940; J2001; J2250; J2405; J7030; Q9967

== ENCOUNTER 2018-12-18 08:33 | Emergency (ER) | payer MEDICARE, OTHER ==
[~2018-12-18] VITALS: Ht 172.7 cm; Wt 115.7 kg
--- OUTSIDE RECORDS SUMMARY | 2018-12-18 08:36 | XMS REPORT | Clinical Summary ---
Author Author MELLISA [facility] Address Unknown Phone Unavailable Care Team Providers Care Screw Machine Tender Name Role Phone Jaquez PCP Unavailable Allergies [...] Not on file Results Not on fileafter 12/17/2017 Insurance Payer Benefit Subscriber ID Type Phone Address [facility] / Group [facility]xx MEDICARE ADV Guarantor Name Account Relation to Date of Phone Billing Address Type Patient Donny Self Personal/F Self 1945 [phone] [facility] (Home) [place] [address] Advance Directives For more information, please contact: [address] [address] Date Inactivated Comments Code Status [...]
[2018-12-18] MEDS ORDERED: VANCOMYCIN 1GM/NS 250 ML 250 ML IV STA (09:07)
--- NOTE | 2018-12-18 09:13 | Diagnostic Imaging Report ---
EXAMINATION: CHEST SINGLE (PORTABLE) INDICATION: Shortness of breath COMPARISON: CT abdomen and pelvis of 05/27/2018, chest radiograph of 05/26/2018 FINDINGS: LINES/TUBES:Sternotomy wires in unchanged configuration. LUNGS:The lungs are moderately inflated. There is perihilar fullness and indistinctness of the pulmonary vasculature. No focal consolidation. PLEURA:No pleural effusion or pneumothorax. MEDIASTINUM:Cardiomediastinal silhouette is stably enlarged. Atherosclerotic calcifications of the thoracic aorta. BONES/SOFT TISSUES:No acute osseous injury. ABDOMEN:No free air under the diaphragm. IMPRESSION: Mild pulmonary edema. Cardiomegaly. Signed by: Bennie Mendiola MD on 12/18/2018 9:10 AM
[2018-12-18 09:14] LABS: BASOPHILS % 0.3 % (0.0-1.0); EOSINOPHILS # (AUTO) 0.2 (0.0-0.4); EOSINOPHILS % 1.9 % (0.0-6.0); HEMATOCRIT 41.1 % (38.2-49.6); HEMOGLOBIN 13.1 g/dL (14.0-18.0); LYMPHOCYTES # (AUTO) 1.1 (1.0-3.2); LYMPHOCYTES % 9.7 % (18.0-39.1); MEAN CORPUSCULAR HEMOGLOBIN 28.8 pg (28-32); MEAN CORPUSCULAR HGB CONC 31.9 g/dL (31-35); MEAN CORPUSCULAR VOLUME 90.3 fL (81-99); MONOCYTES # (AUTO) 0.8 (0.2-0.8); MONOCYTES % 7.2 % (4.4-11.3); NEUTROPHILS % 80.6 % (38.7-80.0); PLATELET COUNT 182 x10e3/uL (140-360); RED BLOOD COUNT 4.55 x10e6/uL (4.3-5.7); RED CELL DISTRIBUTION WIDTH 14.3 % (11.7-14.4)
[2018-12-18 09:43] LABS: INR 1.01; PROTHROMBIN TIME 13.8 seconds (11.9-14.5)
[2018-12-18 09:44] LABS: PARTIAL THROMBOPLASTIN TIME 30.7 seconds (23.8-35.5)
[2018-12-18 09:50] LABS: ALANINE AMINOTRANSFERASE 12 IU/L (0-55); ALBUMIN 3.6 g/dL (3.5-5.0); ALBUMIN/GLOBULIN RATIO 0.9 (0.8-2.0); ALKALINE PHOSPHATASE 66 IU/L (40-150); ANION GAP 12.9 mmol/L (8-16); BLOOD UREA NITROGEN 21 mg/dL (7-26); BUN/CREATININE RATIO 18 (6-25); CALCIUM 9.6 mg/dL (8.4-10.2); CARBON DIOXIDE 30 mmol/L (22-29); CHLORIDE 101 mmol/L (98-107); CREATININE, SERUM 1.18 mg/dL (0.72-1.25); EST GLOMERULAR FILTRATION RATE > 60 ML/MIN (60-); GLUCOSE 114 mg/dL (74-118); POTASSIUM 3.9 mmol/L (3.5-5.1); SODIUM 140 mmol/L (136-145)
--- NOTE | 2018-12-18 10:02 | NUR ---
called venous dopple tech for eta
[2018-12-18 10:13] LABS: CREATINE KINASE MB 1.9 ng/mL (0-5.0)
== END 2018-12-18 11:36 | disposition home or self-care (01) ==
LOC: ER 08:33
DX: L03.116 Cellulitis of left lower limb (principal)
CPT/HCPCS: 36415; 71045; 80053; 82550; 82553; 83605; 83880; 84484; 85025; 85610; 85730; 87040; 93005; 93971; 99284; J3370

== ENCOUNTER 2020-09-17 18:11 | Emergency (ER) | payer OTHER ==
[~2020-09-17] VITALS: Ht 172.7 cm; Wt 115.7 kg
[2020-09-17] MEDS ORDERED: PIPERACILLIN/TAZOBACTAM 3.375 GM in SODIUM CHLORIDE 0.9% 50ML 50 ML IV STA (18:14)
[2020-09-17] MEDS ORDERED: SODIUM CHLORIDE 0.9% 500ML 500 ML IV STA (18:14)
[2020-09-17] MEDS ORDERED: SODIUM CHLORIDE 0.9% 1000ML 1,000 ML ONE (18:26)
[2020-09-17] MEDS ORDERED: HEPARIN SOD (PORCINE) 5,000 UNIT/ML VIAL IV STA (18:30)
[2020-09-17] MEDS ORDERED: ACETAMINOPHEN 325 MG TAB PO ONE (18:30)
[2020-09-17] MEDS ORDERED: ASPIRIN 325 MG TAB PO STA (18:32)
[2020-09-17] MEDS ORDERED: ACETAMINOPHEN 325 MG TAB ONE (18:37)
[2020-09-17 18:40] LABS: BASOPHILS % 0.2 % (0.0-1.0); EOSINOPHILS % 0.2 % (0.0-6.0); HEMATOCRIT 39.9 % (38.2-49.6); HEMOGLOBIN 12.5 g/dL (14.0-18.0); LYMPHOCYTES # (AUTO) 0.7 (1.0-3.2); LYMPHOCYTES % 5.1 % (18.0-39.1); MEAN CORPUSCULAR HEMOGLOBIN 28.5 pg (28-32); MEAN CORPUSCULAR HGB CONC 31.3 g/dL (31-35); MEAN CORPUSCULAR VOLUME 90.9 fL (81-99); MONOCYTES # (AUTO) 0.8 (0.2-0.8); MONOCYTES % 5.7 % (4.4-11.3); NEUTROPHILS # (AUTO) 11.8 (2.1-6.9); NEUTROPHILS % 88.3 % (38.7-80.0); PLATELET COUNT 214 x10e3/uL (140-360); RED BLOOD COUNT 4.39 x10e6/uL (4.3-5.7); RED CELL DISTRIBUTION WIDTH 15.9 % (11.7-14.4)
[2020-09-17 18:57] LABS: ALBUMIN 3.4 g/dL (3.5-5.0); ALBUMIN/GLOBULIN RATIO 0.8 (0.8-2.0); ANION GAP 18.2 mmol/L (8-16); CALCIUM 9.3 mg/dL (8.4-10.2); CREATININE, SERUM 1.91 mg/dL (0.72-1.25); POTASSIUM 4.2 mmol/L (3.5-5.1)
[2020-09-17 19:04] LABS: CREATINE KINASE MB 1.7 ng/mL (0-5.0)
[2020-09-17 19:06] LABS: INR 1.03; PROTHROMBIN TIME 14.1 seconds (11.9-14.5)
[2020-09-17 19:12] LABS: B-TYPE NATRIURETIC PEPTIDE2 269.6 pg/mL (0-100)
== END 2020-09-17 20:49 | disposition other institution (70) ==
LOC: ER 18:38
DX: R06.00 Dyspnea, unspecified (principal); I20.0 Unstable angina; A41.9 Sepsis, unspecified organism; R50.9 Fever, unspecified; I50.9 Heart failure, unspecified; L03.818 Cellulitis of other sites; I10 Essential (primary) hypertension; J44.9 Chronic obstructive pulmonary disease, unspecified; E78.5 Hyperlipidemia, unspecified; M54.9 Dorsalgia, unspecified; G89.29 Other chronic pain; Z95.1 Presence of aortocoronary bypass graft; Z20.822 Contact with and (suspected) exposure to COVID-19
CPT/HCPCS: 36415; 71045; 80053; 82550; 82553; 83605; 83880; 84484; 85025; 85610; 87040; 99284; J1644; J2543; J7030; J7040; U0002

== ENCOUNTER 2020-09-27 21:42 | Inpatient (IN) | payer OTHER ==
[~2020-09-27] VITALS: Ht 172.7 cm; Wt 115.7 kg
[2020-09-27] MEDS ORDERED: VANCOMYCIN 1GM/NS 250 ML 250 ML IV STA (22:08)
[2020-09-27] MEDS ORDERED: SODIUM CHLORIDE 0.9% 1000ML 1,000 ML IV SCH (22:15)
[2020-09-27 22:32] LABS: BASOPHILS % 0.2 % (0.0-1.0); EOSINOPHILS # (AUTO) 0.1 (0.0-0.4); EOSINOPHILS % 0.6 % (0.0-6.0); HEMATOCRIT 37.1 % (38.2-49.6); HEMOGLOBIN 11.5 g/dL (14.0-18.0); LYMPHOCYTES # (AUTO) 1.2 (1.0-3.2); MEAN CORPUSCULAR HEMOGLOBIN 28.2 pg (28-32); MEAN CORPUSCULAR VOLUME 90.9 fL (81-99); MONOCYTES # (AUTO) 0.9 (0.2-0.8); MONOCYTES % 6.9 % (4.4-11.3); NEUTROPHILS # (AUTO) 10.9 (2.1-6.9); NEUTROPHILS % 82.8 % (38.7-80.0); PLATELET COUNT 256 x10e3/uL (140-360); RED BLOOD COUNT 4.08 x10e6/uL (4.3-5.7); RED CELL DISTRIBUTION WIDTH 15.7 % (11.7-14.4)
[2020-09-27 22:51] LABS: ALBUMIN/GLOBULIN RATIO 0.7 (0.8-2.0); ANION GAP 13.9 mmol/L (8-16); CALCIUM 9.2 mg/dL (8.4-10.2); CREATININE, SERUM 1.62 mg/dL (0.72-1.25); POTASSIUM 3.9 mmol/L (3.5-5.1)
[2020-09-27 22:57] LABS: CREATINE KINASE MB 1.4 ng/mL (0-5.0)
[2020-09-27] MEDS ORDERED: SODIUM CHLORIDE 0.9% 250ML 250 ML ONE (22:57)
[2020-09-27] MEDS ORDERED: Vancomycin IV 1 GM VIAL ONE (22:57)
[2020-09-27] MEDS ORDERED: FUROSEMIDE INJ 10 MG/ML 4 ML VIAL IV ONE (23:30)
[2020-09-27] MEDS ORDERED: FUROSEMIDE INJ 10 MG/ML 4 ML VIAL ONE (23:39)
[2020-09-27 23:56] LABS: CLARITY,URINE CLEAR (CLEAR); COLOR,URINE YELLOW (YELLOW); KETONES,URINE NEGATIVE (NEGATIVE); LEUKOCYTE ESTERASE ,URINE NEGATIVE (NEGATIVE); NITRITE,URINE NEGATIVE (NEGATIVE); PROTEIN,URINE DIPSTICK TRACE (NEGATIVE)
[2020-09-28] VITALS (8 sets, daily range): BP systolic 128–146; BP diastolic 52–56
[2020-09-28 00:06] LABS: BACTERIA,URINE MODERATE /HPF; EPITHELIAL CELLS,URINE FEW /LPF; MUCUS,URINE MANY (RARE)
[2020-09-28] MEDS ORDERED: BUMETANIDE2 MG PO (01:44)
[2020-09-28 07:09] LABS: BASOPHILS % 0.4 % (0.0-1.0); EOSINOPHILS # (AUTO) 0.1 (0.0-0.4); HEMATOCRIT 35.4 % (38.2-49.6); HEMOGLOBIN 10.8 g/dL (14.0-18.0); LYMPHOCYTES # (AUTO) 1.3 (1.0-3.2); LYMPHOCYTES % 11.8 % (18.0-39.1); MEAN CORPUSCULAR HEMOGLOBIN 28.1 pg (28-32); MEAN CORPUSCULAR HGB CONC 30.5 g/dL (31-35); MEAN CORPUSCULAR VOLUME 92.2 fL (81-99); MONOCYTES # (AUTO) 0.8 (0.2-0.8); MONOCYTES % 7.5 % (4.4-11.3); NEUTROPHILS # (AUTO) 8.4 (2.1-6.9); NEUTROPHILS % 78.9 % (38.7-80.0); PLATELET COUNT 220 x10e3/uL (140-360); RED BLOOD COUNT 3.84 x10e6/uL (4.3-5.7); RED CELL DISTRIBUTION WIDTH 15.5 % (11.7-14.4)
[2020-09-28 07:30] LABS: ALBUMIN 2.7 g/dL (3.5-5.0); ALBUMIN/GLOBULIN RATIO 0.7 (0.8-2.0); ANION GAP 10.8 mmol/L (8-16); CALCIUM 8.6 mg/dL (8.4-10.2); CREATININE, SERUM 1.52 mg/dL (0.72-1.25); POTASSIUM 3.8 mmol/L (3.5-5.1)
[2020-09-28 08:04] LABS: CREATINE KINASE MB 1.8 ng/mL (0-5.0)
[2020-09-28] MEDS: ALBUTEROL/IPRATROPIUM 3 ML NEB NEB PRN ×2 (10:04→17:47)
[2020-09-28] MEDS ORDERED: ONDANSETRON HCL INJ 2MG/ML 2ML 2 MG/ML VIAL IV PRN (10:45)
[2020-09-28] MEDS ORDERED: ACETAMINOPHEN 325 MG TAB PO PRN (10:45)
[2020-09-28] MEDS ORDERED: FUROSEMIDE INJ 10 MG/ML 4 ML VIAL IV SCH (11:00)
[2020-09-28] MEDS ORDERED: SODIUM CHLORIDE 0.9% 250ML 250 ML ONE (12:37)
[2020-09-28] MEDS: CEFTRIAXONE 1 GM in SODIUM CHLORIDE 0.9% 50ML 50 ML IV SCH (12:43)
[2020-09-28 16:20] LABS: CREATINE KINASE MB 1.9 ng/mL (0-5.0)
[2020-09-28] MEDS: METOPROLOL TARTRATE 50 MG TAB PO SCH (17:28)
[2020-09-28] MEDS: BUDESONIDE/FORMOTEROL 160/4.5MCG INHALER INH SCH (19:48)
[2020-09-28] MEDS: HEPARIN SOD (PORCINE) 5,000 UNIT/ML VIAL SC SCH (21:00)
[2020-09-28] MEDS: SIMVASTATIN 20 MG TAB PO SCH (21:34)
[2020-09-28] MEDS: FUROSEMIDE INJ 10 MG/ML 4 ML VIAL IV SCH ×2 (21:34→22:00)
[2020-09-29] VITALS (8 sets, daily range): BP systolic 123–154; BP diastolic 44–79
[2020-09-29 05:58] LABS: BASOPHILS % 0.2 % (0.0-1.0); EOSINOPHILS # (AUTO) 0.1 (0.0-0.4); EOSINOPHILS % 0.9 % (0.0-6.0); HEMATOCRIT 34.5 % (38.2-49.6); HEMOGLOBIN 10.4 g/dL (14.0-18.0); LYMPHOCYTES % 8.2 % (18.0-39.1); MEAN CORPUSCULAR HEMOGLOBIN 28.3 pg (28-32); MEAN CORPUSCULAR HGB CONC 30.1 g/dL (31-35); MEAN CORPUSCULAR VOLUME 93.8 fL (81-99); MONOCYTES # (AUTO) 0.8 (0.2-0.8); MONOCYTES % 6.9 % (4.4-11.3); NEUTROPHILS # (AUTO) 9.7 (2.1-6.9); NEUTROPHILS % 83.2 % (38.7-80.0); PLATELET COUNT 207 x10e3/uL (140-360); RED BLOOD COUNT 3.68 x10e6/uL (4.3-5.7); RED CELL DISTRIBUTION WIDTH 15.3 % (11.7-14.4)
[2020-09-29] MEDS: FUROSEMIDE INJ 10 MG/ML 4 ML VIAL IV SCH ×3 (06:12→22:39)
[2020-09-29 06:20] LABS: ANION GAP 13.8 mmol/L (8-16); CALCIUM 8.9 mg/dL (8.4-10.2); CREATININE, SERUM 1.41 mg/dL (0.72-1.25); POTASSIUM 3.8 mmol/L (3.5-5.1)
[2020-09-29] MEDS: BUDESONIDE/FORMOTEROL 160/4.5MCG INHALER INH SCH ×2 (07:47→19:48)
[2020-09-29] MEDS: HEPARIN SOD (PORCINE) 5,000 UNIT/ML VIAL SC SCH ×2 (09:00→21:30)
[2020-09-29] MEDS: NON-FORMULARY MEDICATION (Fenofibrate 160 MG) PO SCH (09:00)
[2020-09-29] MEDS: METOPROLOL TARTRATE 50 MG TAB PO SCH ×2 (09:21→17:03)
[2020-09-29] MEDS: VALSARTAN 160 MG TAB PO SCH (09:21)
[2020-09-29] MEDS: CEFTRIAXONE 1 GM in SODIUM CHLORIDE 0.9% 50ML 50 ML IV SCH (10:55)
[2020-09-29] MEDS: PREDNISONE 20 MG TAB PO SCH (10:55)
[2020-09-29] MEDS: ALBUTEROL/IPRATROPIUM 3 ML NEB NEB PRN (17:20)
[2020-09-29] MEDS: SIMVASTATIN 20 MG TAB PO SCH (21:26)
[2020-09-30] VITALS (8 sets, daily range): BP systolic 110–151; BP diastolic 41–61
[2020-09-30 06:20] LABS: BASOPHILS % 0.2 % (0.0-1.0); EOSINOPHILS % 0.2 % (0.0-6.0); HEMATOCRIT 34.6 % (38.2-49.6); HEMOGLOBIN 10.6 g/dL (14.0-18.0); LYMPHOCYTES # (AUTO) 0.8 (1.0-3.2); LYMPHOCYTES % 7.9 % (18.0-39.1); MEAN CORPUSCULAR HEMOGLOBIN 28.3 pg (28-32); MEAN CORPUSCULAR HGB CONC 30.6 g/dL (31-35); MEAN CORPUSCULAR VOLUME 92.5 fL (81-99); MONOCYTES # (AUTO) 0.6 (0.2-0.8); NEUTROPHILS # (AUTO) 8.5 (2.1-6.9); NEUTROPHILS % 85.4 % (38.7-80.0); PLATELET COUNT 217 x10e3/uL (140-360); RED BLOOD COUNT 3.74 x10e6/uL (4.3-5.7); RED CELL DISTRIBUTION WIDTH 14.7 % (11.7-14.4)
[2020-09-30] MEDS: FUROSEMIDE INJ 10 MG/ML 4 ML VIAL IV SCH ×3 (06:22→21:12)
[2020-09-30 06:56] LABS: ANION GAP 12.9 mmol/L (8-16); CALCIUM 8.7 mg/dL (8.4-10.2); CREATININE, SERUM 1.56 mg/dL (0.72-1.25); POTASSIUM 3.9 mmol/L (3.5-5.1)
[2020-09-30] MEDS: BUDESONIDE/FORMOTEROL 160/4.5MCG INHALER INH SCH ×2 (07:55→22:15)
[2020-09-30] MEDS: NON-FORMULARY MEDICATION (Fenofibrate 160 MG) PO SCH (09:00)
[2020-09-30] MEDS: HEPARIN SOD (PORCINE) 5,000 UNIT/ML VIAL SC SCH ×3 (09:00→21:00)
[2020-09-30] MEDS: METOPROLOL TARTRATE 50 MG TAB PO SCH ×2 (09:00→17:00)
[2020-09-30] MEDS: VALSARTAN 160 MG TAB PO SCH (09:00)
[2020-09-30] MEDS: PREDNISONE 20 MG TAB PO SCH (09:43)
[2020-09-30] MEDS: CEFTRIAXONE 1 GM in SODIUM CHLORIDE 0.9% 50ML 50 ML IV SCH (11:15)
[2020-09-30] MEDS: SIMVASTATIN 20 MG TAB PO SCH (21:00)
[2020-10-01] MEDS: FUROSEMIDE INJ 10 MG/ML 4 ML VIAL IV SCH ×2 (05:21→14:00)
[2020-10-01] MEDS: BUDESONIDE/FORMOTEROL 160/4.5MCG INHALER INH SCH (07:00)
[2020-10-01] MEDS: HEPARIN SOD (PORCINE) 5,000 UNIT/ML VIAL SC SCH (07:41)
[2020-10-01] MEDS: NON-FORMULARY MEDICATION (Fenofibrate 160 MG) PO SCH (07:41)
[2020-10-01] MEDS: METOPROLOL TARTRATE 50 MG TAB PO SCH (07:43)
[2020-10-01] MEDS: PREDNISONE 20 MG TAB PO SCH (09:13)
[2020-10-01] MEDS: VALSARTAN 160 MG TAB PO SCH (09:13)
[2020-10-01] MEDS: CEFTRIAXONE 1 GM in SODIUM CHLORIDE 0.9% 50ML 50 ML IV SCH (11:20)
[2020-10-01 12:00] VITALS: BP 155/54
[2020-10-01] MEDS ORDERED: AUGMENTIN 875-1 EACH PO (14:54)
[2020-10-01] MEDS ORDERED: PREDNISONE50 MG PO (14:54)
== END 2020-10-01 15:18 | disposition home or self-care (01) | DRG 291 ==
LOC: ER 22:18 → ERHOLD 23:26 → MED/SURG3 09-28 01:13
PROVIDERS: ADMIT Internal Medicine; ATTEND Internal Medicine
DX: I13.0 Hypertensive heart and chronic kidney disease with heart failure and stage 1 through stage 4 chronic kidney disease, or unspecified chronic kidney disease (principal); J18.9 Pneumonia, unspecified organism; I50.33 Acute on chronic diastolic (congestive) heart failure; N17.9 Acute kidney failure, unspecified; J44.1 Chronic obstructive pulmonary disease with (acute) exacerbation; J44.0 Chronic obstructive pulmonary disease with (acute) lower respiratory infection; N18.30 Chronic kidney disease, stage 3 unspecified; K21.9 Gastro-esophageal reflux disease without esophagitis; I25.10 Atherosclerotic heart disease of native coronary artery without angina pectoris; E78.00 Pure hypercholesterolemia, unspecified; G47.30 Sleep apnea, unspecified; R06.03 Acute respiratory distress; Z88.5 Allergy status to narcotic agent; Z95.1 Presence of aortocoronary bypass graft
CPT/HCPCS: 36415; 71045; 80048; 80053; 81001; 82550; 82553; 83605; 83735; 83880; 84484; 85025; 87040; 93005; 93306; 94640; 94664; 99284; J0696; J1644; J1940; J3370; J7050; J7512

== ENCOUNTER 2022-08-22 14:17 | Observation (INO) | payer MEDICARE, OTHER ==
[~2022-08-22] VITALS: Ht 167.6 cm; Wt 103.0 kg
[~2022-08-22 14:17] MED LIST changes: +AUGMENTIN 875-1 EACH PO; +BUMETANIDE2 MG PO; +PREDNISONE50 MG PO
[2022-08-22] MEDS ORDERED: SODIUM CHLORIDE FLUSH 10 ML SYR IV PRN (14:30)
[2022-08-22 14:36] LABS: BASOPHILS % 0.1 % (0.0-1.0); EOSINOPHILS % 14.3 % (0.0-6.0); HEMOGLOBIN 14.7 g/dL (14.0-18.0); LYMPHOCYTES # (AUTO) 1.2 (1.0-3.2); LYMPHOCYTES % 16.5 % (18.0-39.1); MEAN CORPUSCULAR HEMOGLOBIN 29.1 pg (28-32); MEAN CORPUSCULAR HGB CONC 31.3 g/dL (31-35); MEAN CORPUSCULAR VOLUME 92.9 fL (81-99); MONOCYTES # (AUTO) 0.8 (0.2-0.8); MONOCYTES % 11.3 % (4.4-11.3); NEUTROPHILS % 57.5 % (38.7-80.0); PLATELET COUNT 219 x10e3/uL (140-360); RED BLOOD COUNT 5.06 x10e6/uL (4.3-5.7); RED CELL DISTRIBUTION WIDTH 16.9 % (11.7-14.4)
[2022-08-22 14:48] LABS: PROTHROMBIN TIME 31.5 seconds (11.9-14.5)
[2022-08-22 14:49] LABS: PARTIAL THROMBOPLASTIN TIME 48.7 seconds (23.8-35.5)
[2022-08-22 14:55] LABS: ALBUMIN 3.1 g/dL (3.5-5.0); ALBUMIN/GLOBULIN RATIO 0.8 (0.8-2.0); ANION GAP 13.7 mmol/L (8-16); CALCIUM 8.9 mg/dL (8.4-10.2); CREATININE, SERUM 2.63 mg/dL (0.72-1.25); POTASSIUM 3.7 mmol/L (3.5-5.1)
[2022-08-22] MEDS ORDERED: ONDANSETRON HCL INJ 2MG/ML 2ML 2 MG/ML VIAL IV PRN (17:45)
[2022-08-22] MEDS ORDERED: ASPIRIN 81 MG CHEW TAB PO ONE (17:45)
[2022-08-22] MEDS ORDERED: SODIUM CHLORIDE FLUSH 10 ML SYR INJ PRN (17:45)
[2022-08-22 20:40] VITALS: BP 130/63; PULSE 96; RESP 20; TEMP 97.1; O2SAT 98
[2022-08-22] MEDS ORDERED: ACETAMINOPHEN 325 MG TAB PO PRN (21:30)
[2022-08-22] MEDS ORDERED: CLONIDINE HCL 0.1 MG TAB PO PRN (21:30)
[2022-08-23] VITALS (8 sets, daily range): BP systolic 100–133; BP diastolic 47–74; PULSE 64–96; RESP 17–21; TEMP 97.1–98; O2SAT 96–100
[2022-08-23] MEDS ORDERED: ASPIRIN81 MG PO (03:41)
[2022-08-23] MEDS ORDERED: WARFARIN SODIUM5 MG PO (03:41)
[2022-08-23 04:53] LABS: BASOPHILS % 0.4 % (0.0-1.0); EOSINOPHILS # (AUTO) 1.2 (0.0-0.4); EOSINOPHILS % 20.7 % (0.0-6.0); HEMATOCRIT 42.2 % (38.2-49.6); HEMOGLOBIN 13.2 g/dL (14.0-18.0); LYMPHOCYTES # (AUTO) 0.9 (1.0-3.2); MEAN CORPUSCULAR HEMOGLOBIN 29.1 pg (28-32); MEAN CORPUSCULAR HGB CONC 31.3 g/dL (31-35); MONOCYTES # (AUTO) 0.7 (0.2-0.8); MONOCYTES % 12.2 % (4.4-11.3); NEUTROPHILS # (AUTO) 2.8 (2.1-6.9); NEUTROPHILS % 50.5 % (38.7-80.0); PLATELET COUNT 190 x10e3/uL (140-360); RED BLOOD COUNT 4.54 x10e6/uL (4.3-5.7); RED CELL DISTRIBUTION WIDTH 16.2 % (11.7-14.4)
[2022-08-23 07:20] LABS: ALBUMIN 2.6 g/dL (3.5-5.0); ALBUMIN/GLOBULIN RATIO 0.7 (0.8-2.0); ANION GAP 13.8 mmol/L (8-16); CALCIUM 8.5 mg/dL (8.4-10.2); CREATININE, SERUM 2.05 mg/dL (0.72-1.25); POTASSIUM 3.8 mmol/L (3.5-5.1)
[2022-08-23 07:28] LABS: EOSINOPHILS % (MANUAL) 15 % (0-7); LYMPHOCYTES % (MANUAL) 11 % (19-48); MONOCYTES % (MANUAL) 15 % (3.4-9.0); NEUTROPHILS % (MANUAL) 56 % (40-74); PLATELET ESTIMATE ADEQUATE; PLATELET MORPHOLOGY COMMENT NORMAL; RBC MORPHOLOGY COMMENT NORMAL
[2022-08-23] MEDS ORDERED: BUMETANIDE 1 MG TAB PO SCH (09:00)
[2022-08-23] MEDS ORDERED: METOPROLOL TARTRATE 50 MG TAB PO SCH (09:00)
[2022-08-23] MEDS ORDERED: NON-FORMULARY MEDICATION (Fenofibrate 160 MG) PO SCH (09:00)
[2022-08-23] MEDS ORDERED: VALSARTAN 160 MG TAB PO SCH (09:00)
[2022-08-23] MEDS ORDERED: HYDROXYZINE HCL 25 MG TAB PO PRN (12:30)
[2022-08-23] MEDS ORDERED: ONDANSETRON HCL 4 MG ORAL DISINTEGRATING TAB PO PRN (14:45)
[2022-08-23] MEDS ORDERED: WARFARIN SOD 5 MG TAB PO SCH (17:00)
[2022-08-23] MEDS ORDERED: SIMVASTATIN 20 MG TAB PO SCH (21:00)
[2022-08-24] MEDS ORDERED: ASPIRIN 81 MG CHEW TAB PO SCH (09:00)
[2022-08-24] MEDS ORDERED: WARFARIN SOD 5 MG TAB PO SCH (17:00)
== END 2022-08-23 16:14 | disposition home or self-care (01) ==
LOC: ER 14:22 → ERHOLD 17:43 → MED/SURG 21:02
PROVIDERS: ADMIT Internal Medicine; ATTEND Internal Medicine
DX: R29.810 Facial weakness (principal); I13.0 Hypertensive heart and chronic kidney disease with heart failure and stage 1 through stage 4 chronic kidney disease, or unspecified chronic kidney disease; I50.42 Chronic combined systolic (congestive) and diastolic (congestive) heart failure; N18.32 Chronic kidney disease, stage 3b; I25.10 Atherosclerotic heart disease of native coronary artery without angina pectoris; I48.91 Unspecified atrial fibrillation; Z95.1 Presence of aortocoronary bypass graft; Z95.5 Presence of coronary angioplasty implant and graft; Z79.01 Long term (current) use of anticoagulants; E78.00 Pure hypercholesterolemia, unspecified; J45.909 Unspecified asthma, uncomplicated; R21 Rash and other nonspecific skin eruption; Z20.822 Contact with and (suspected) exposure to COVID-19
CPT/HCPCS: 36415 ×2; 70450; 70551; 71045; 80053 ×2; 83735; 83880; 84484; 85025 ×2; 85610; 85730; 92526; 92610; 93005; 93306; 93880; 94760; 99284; G0378 ×2; U0002

== ENCOUNTER 2024-04-13 12:47 | Inpatient (IN) | payer MEDICARE ==
[~2024-04-13] VITALS: Ht 167.6 cm; Wt 93.0 kg
[~2024-04-13 12:47] MED LIST changes: +ASPIRIN81 MG PO; +WARFARIN SODIUM5 MG PO
[2024-04-13] MEDS ORDERED: ONDANSETRON HCL INJ 2MG/ML 2ML 2 MG/ML VIAL IV PRN ×2 (13:15→13:45)
[2024-04-13 13:32] LABS: BASOPHILS % 0.5 % (0.0-1.0); EOSINOPHILS # (AUTO) 0.5 (0.0-0.4); EOSINOPHILS % 5.7 % (0.0-6.0); HEMATOCRIT 43.8 % (38.2-49.6); HEMOGLOBIN 13.4 g/dL (14.0-18.0); LYMPHOCYTES # (AUTO) 1.2 (1.0-3.2); LYMPHOCYTES % 13.4 % (18.0-39.1); MEAN CORPUSCULAR HGB CONC 30.6 g/dL (31-35); MEAN CORPUSCULAR VOLUME 98.2 fL (81-99); MONOCYTES # (AUTO) 0.8 (0.2-0.8); MONOCYTES % 9.1 % (4.4-11.3); NEUTROPHILS # (AUTO) 6.3 (2.1-6.9); PLATELET COUNT 177 x10e3/uL (140-360); RED BLOOD COUNT 4.46 x10e6/uL (4.3-5.7); RED CELL DISTRIBUTION WIDTH 15.1 % (11.7-14.4); WHITE BLOOD COUNT 8.83 x10e3/uL (4.8-10.8)
[2024-04-13] MEDS: SODIUM CHLORIDE 0.9% 500ML 500 ML IV ONE (13:42)
[2024-04-13] MEDS: TETANUS/DIPHTHERIA TOX ADULT 0.5 ML SYR IM ONE (13:43)
[2024-04-13] MEDS ORDERED: ACETAMINOPHEN 325 MG TAB PO PRN (13:45)
[2024-04-13] MEDS ORDERED: HYDRALAZINE HCL 20 MG/ML VIAL IV PRN (13:45)
[2024-04-13 13:53] LABS: INR 1.3; PROTHROMBIN TIME 16.9 seconds (11.9-14.5)
[2024-04-13 13:54] LABS: PARTIAL THROMBOPLASTIN TIME 34.5 seconds (23.8-35.5)
[2024-04-13 14:01] LABS: ALBUMIN/GLOBULIN RATIO 0.7 (0.8-2.0); ANION GAP 12.8 mmol/L (8-16); BILIRUBIN,TOTAL 0.8 mg/dL (0.2-1.2); CALCIUM 9.5 mg/dL (8.4-10.2); CREATININE, SERUM 1.31 mg/dL (0.72-1.25); MAGNESIUM 1.9 MG/DL (1.3-2.1); POTASSIUM 3.8 mmol/L (3.5-5.1); TOTAL PROTEIN 7.1 g/dL (6.5-8.1)
[2024-04-13 14:06] LABS: TROPONIN I 0.037 ng/mL (0-0.300)
[2024-04-13] MEDS ORDERED: IOPAMIDOL 370 MG/ML 100 ML INFUS..BTL INJ ONE (14:12)
[2024-04-13] MEDS: Vancomycin IV 1 GM in SODIUM CHLORIDE 0.9% 250ML 250 ML IV ONE (14:28)
[2024-04-13] MEDS: METOPROLOL TARTRATE 50 MG TAB PO SCH (17:03)
[2024-04-13] MEDS ORDERED: ACETAMINOPHEN/CODEINE 300MG - 30MG TAB PO PRN (17:15)
[2024-04-13] MEDS: APIXABAN 5 MG TABLET PO SCH (18:04)
[2024-04-13 19:18] VITALS: PULSE 71; RESP 18; TEMP 98.1
[2024-04-13 19:30] VITALS: BP 163/64; PULSE 64; RESP 20; TEMP 98; O2SAT 94
[2024-04-13 19:48] LABS: TROPONIN I 0.04 ng/mL (0-0.300)
[2024-04-13 20:00] VITALS: BP 163/68; PULSE 64; RESP 20; TEMP 98; O2SAT 96
[2024-04-13] MEDS: SIMVASTATIN 20 MG TAB PO SCH (21:00)
[2024-04-13 22:11] VITALS: BP 163/68; PULSE 64; RESP 20; TEMP 98; O2SAT 96
[2024-04-14] VITALS (13 sets, daily range): BP systolic 125–168; BP diastolic 54–92; PULSE 69–93; RESP 18–20; TEMP 97.7–100; O2SAT 89–100
[2024-04-14] MEDS: Vancomycin IV 1 GM in SODIUM CHLORIDE 0.9% 250ML 250 ML IV SCH (01:58)
[2024-04-14 05:48] LABS: BASOPHILS % 0.2 % (0.0-1.0); EOSINOPHILS # (AUTO) 0.7 (0.0-0.4); EOSINOPHILS % 8.9 % (0.0-6.0); HEMATOCRIT 40.2 % (38.2-49.6); HEMOGLOBIN 12.6 g/dL (14.0-18.0); LYMPHOCYTES # (AUTO) 0.9 (1.0-3.2); LYMPHOCYTES % 11.1 % (18.0-39.1); MEAN CORPUSCULAR HEMOGLOBIN 29.9 pg (28-32); MEAN CORPUSCULAR HGB CONC 31.3 g/dL (31-35); MEAN CORPUSCULAR VOLUME 95.5 fL (81-99); MONOCYTES # (AUTO) 0.8 (0.2-0.8); MONOCYTES % 9.7 % (4.4-11.3); NEUTROPHILS # (AUTO) 5.8 (2.1-6.9); NEUTROPHILS % 69.9 % (38.7-80.0); PLATELET COUNT 165 x10e3/uL (140-360); RED BLOOD COUNT 4.21 x10e6/uL (4.3-5.7); RED CELL DISTRIBUTION WIDTH 15.1 % (11.7-14.4); WHITE BLOOD COUNT 8.27 x10e3/uL (4.8-10.8)
[2024-04-14 06:19] LABS: ALBUMIN 2.6 g/dL (3.5-5.0); ALBUMIN/GLOBULIN RATIO 0.7 (0.8-2.0); ANION GAP 12.1 mmol/L (8-16); BILIRUBIN,TOTAL 0.7 mg/dL (0.2-1.2); CALCIUM 9.1 mg/dL (8.4-10.2); CHOL/HDL RATIO 2.6 (3.9-4.7); CREATININE, SERUM 1.3 mg/dL (0.72-1.25); POTASSIUM 4.1 mmol/L (3.5-5.1); TOTAL PROTEIN 6.5 g/dL (6.5-8.1)
[2024-04-14 06:43] LABS: TROPONIN I 0.044 ng/mL (0-0.300)
[2024-04-14] MEDS: NON-FORMULARY MEDICATION (Fenofibrate 160 MG) PO SCH (09:00)
[2024-04-14] MEDS: VALSARTAN 160 MG TAB PO SCH (09:00)
[2024-04-14] MEDS: SODIUM CHLORIDE 0.9% 250ML 250 ML ONE (10:05)
[2024-04-14] MEDS: ASPIRIN 81 MG CHEW TAB PO SCH (10:09)
[2024-04-14] MEDS: BUMETANIDE 1 MG TAB PO SCH (10:09)
[2024-04-14] MEDS ORDERED: ELIQUIS5 MG PO (10:12)
[2024-04-14] MEDS: ALBUTEROL/IPRATROPIUM 3 ML NEB NEB PRN (10:15)
[2024-04-14] MEDS ORDERED: SALBUTAMOL INH (11:56)
[2024-04-14] MEDS ORDERED: GUAIFENESIN 600 MG TAB PO PRN (14:45)
[2024-04-14] MEDS: ALBUTEROL/IPRATROPIUM 3 ML NEB NEB SCH (15:59)
[2024-04-14] MEDS: BUDESONIDE/FORMOTEROL 160/4.5MCG INHALER INH SCH (19:10)
[2024-04-14] MEDS ORDERED: Vancomycin IV 1 GM in SODIUM CHLORIDE 0.9% 250ML 250 ML IV SCH (20:00)
[2024-04-15] VITALS (8 sets, daily range): BP systolic 127–153; BP diastolic 66–77; PULSE 80–109; RESP 16–22; TEMP 98.1–98.5; O2SAT 93–100
[2024-04-15 05:48] LABS: ANION GAP 13.2 mmol/L (8-16); CALCIUM 9.5 mg/dL (8.4-10.2); CREATININE, SERUM 1.27 mg/dL (0.72-1.25); POTASSIUM 4.2 mmol/L (3.5-5.1)
[2024-04-15] MEDS ORDERED: CLEOCIN HCL300 MG PO (13:03)
[2024-04-15] MEDS ORDERED: Vancomycin IV 1 GM in SODIUM CHLORIDE 0.9% 250ML 250 ML IV SCH (15:00)
[2024-04-15] MEDS ORDERED: ONDANSETRON HCL 4 MG ORAL DISINTEGRATING TAB PO PRN (15:45)
== END 2024-04-16 04:06 | disposition home or self-care (01) | DRG 603 ==
LOC: ER 12:50 → ERHOLD 13:17 → MED/SURG2 19:44
PROVIDERS: ADMIT Internal Medicine; ATTEND Internal Medicine
DX: L03.211 Cellulitis of face (principal); N17.9 Acute kidney failure, unspecified; I12.9 Hypertensive chronic kidney disease with stage 1 through stage 4 chronic kidney disease, or unspecified chronic kidney disease; E78.00 Pure hypercholesterolemia, unspecified; N18.9 Chronic kidney disease, unspecified; I48.91 Unspecified atrial fibrillation; I25.10 Atherosclerotic heart disease of native coronary artery without angina pectoris; J44.9 Chronic obstructive pulmonary disease, unspecified; M54.9 Dorsalgia, unspecified; L40.9 Psoriasis, unspecified; Z88.5 Allergy status to narcotic agent; Z79.01 Long term (current) use of anticoagulants; Z79.82 Long term (current) use of aspirin; Z79.52 Long term (current) use of systemic steroids; Z95.1 Presence of aortocoronary bypass graft; Z82.49 Family history of ischemic heart disease and other diseases of the circulatory system
CPT/HCPCS: 36415; 70487; 71045; 80048; 80053; 80061; 82550; 83735; 84484; 85025; 85610; 85730; 87040; 90471; 90714; 93005; 94664; 94799; 99252; 99284; J2543; J7040; J7050; Q9967